=== PATIENT | female | born 1935 | race Caucasian/White ===

== ENCOUNTER 2017-06-26 18:38 | Inpatient (IN) | payer MEDICARE, OTHER ==
[~2017-06-26 18:38] MED LIST: ISOVUE-370 76%-LOCM 1 ML ONE
[2017-06-26] MEDS ORDERED: Ibuprofen 200 MG TAB ONE (18:51)
[2017-06-26 19:28] LABS: Hemoglobin 12.6 g/dL (12.0-16.0); Mean Corpuscular HGB CONC 33.8 g/dL (32.0-36.0); Mean Corpuscular Hemoglobin 31.1 pg (27.0-31.0); Mean Corpuscular Volume 92.1 fl (81.0-99.0); Mean Platelet Volume 7.8 fL (7.4-10.4); Platelet Count 293 thou/uL (130-400); RBC Distribution Width 12.5 % (11.5-14.5); Red Blood Cell (RBC) Count 4.06 mill/uL (4.20-5.40); White Blood Cell (WBC) Count 15.8 thou/uL (4.8-10.8)
[2017-06-26 19:44] LABS: Band 4 % (5-11); Lymphocytes 2 % (21-51); MDiff Complete? YES; Monocytes 16 % (0-10); Neutrophil 76 % (42-75); Reactive Lymphocytes 2 % (0-10)
[2017-06-26 19:51] LABS: ALT (SGPT) 12 U/L (8-55); AST (SGOT) 18 U/L (5-34); Albumin 3.6 g/dL (3.4-4.8); Alkaline Phosphatase 68 U/L (40-150); Anion Gap 16 mmol/L (10-20); BUN (Urea Nitrogen) 16 mg/dL (9.8-20.1); Bilirubin, Total 1.3 mg/dL (0.2-1.2); Calc. Creatinine Clearance 0 mL/min (70-130); Calcium 9.8 mg/dL (7.8-10.44); Carbon Dioxide 23 mmol/L (23-31); Chloride 94 mmol/L (98-107); Estimated GFR-MDRD 73; Globulin 3.6 g/dL (2.4-3.5); Glucose 112 mg/dL (83-110); Potassium 3.8 mmol/L (3.5-5.1); Protein, Total 7.2 g/dL (6.0-8.3); Sodium 129 mmol/L (136-145)
[2017-06-26 20:06] LABS: CKMB 0.4 ng/mL (0-6.6); Troponin I 0.034 ng/mL (< 0.028)
--- NOTE | 2017-06-26 20:57 | RAD ---
CHEST ONE VIEW: 06/26/17 COMPARISON: 04/12/10 study. HISTORY: Fever. Generalized weakness. Heart size is within normal limits considering AP technique. There are atherosclerotic changes of the aorta. The lungs are clear of infiltrates. Marked deformity to both shoulders are present. IMPRESSION: Borderline heart size. No active intrathoracic disease. POS: [facility]
[2017-06-26 21:22] LABS: Bilirubin Small (Negative); Blood, Urine Negative (Negative); Clarity CLEAR (Clear); Glucose, Urine (Dipstick) Negative (Negative); Leukocyte Moderate (Negative); Nitrite Negative (Negative); Protein, Urine (Dipstick) 30 mg/dL (Neg-Trace); Specific Gravity, Urine 1.018 (1.002-1.036); pH, Urine 6.5 (5.0-9.0)
[2017-06-26 21:23] LABS: Bacteria/HPF None Seen HPF (None Seen); Pathc Cast-AUWi Flag 1.21 (0-2.49); Squamous Epithelial 0-3 HPF (0-3)
[2017-06-26] MEDS ORDERED: diphenhydrAMINE 50 MG/ML VIAL ONE (21:29)
[2017-06-26] MEDS ORDERED: Famotidine/PF 20 mg/2ml Vial ONE (21:29)
[2017-06-26] MEDS ORDERED: methylPREDNISolone Sod Succ/PF 125 MG/2 ML VIAL ONE (21:29)
[2017-06-26 21:36] LABS: Hyaline Casts/LPF NONE SEEN LPF (0-3 Hyaline); RBC/HPF 0-3 HPF (0-3); Renal Epithelial None Seen HPF (0-3); Transitional Epithelial NONE SEEN HPF (0-3)
--- NOTE | 2017-06-26 22:49 | CT ---
CT ANGIO OF CHEST AND ABDOMEN PERFORMED WITH INTRAVENOUS CONTRAST ENHANCEMENT WITH 3D RECONSTRUCTIONS . HISTORY: Atrial fibrillation, hypertension. Patient complaining of pain on left side, also with chest and arm pain. History of lymphoma. Fever. Lung bases shows bibasilar atelectatic lung change. No pulmonary nodules or any pleural effusions. No significant mediastinal, hilar or axillary adenopathy. There are pulmonary artery opacifications. Shows no evidence of central pulmonary embolus. Thoracic aorta is normal in caliber. CT ANGIO OF ABDOMEN PERFORMED WITH CONTRAST: The liver, spleen, and pancreas regions appear unremarkable on an angiographic phase exam. There is a possible gallstone within the fundus region of the gallbladder. Right and left adrenal glands are normal. There is cortical scarring involving the kidneys and a righ t renal cyst. The aorta is normal in caliber. There is no dissection or aneurysm. Atherosclerotic disease is seen a t the origin of both renal arteries. No free fluid. IMPRESSION: 1. No CT evidence of aneurysm or dissection. 2. Bibasilar atelectasis. 3. Probable gallstone. 1. POS: [facility]
[2017-06-26 23:46] LABS: Troponin I 0.022 ng/mL (< 0.028)
[2017-06-27 01:19] VITALS: BMI 26.1
[2017-06-27 02:50] LABS: Troponin I 0.015 ng/mL (< 0.028)
[2017-06-27] MEDS ORDERED: cefTRIAXone\\ROCEPHIN 1 GM, Syringe 0.4 ML in Sterile Water 9.6 ML SLOW IVP SCH (10:00)
[2017-06-27] MEDS ORDERED: Acetaminophen 325 MG TAB PO PRN (10:54)
[2017-06-27] MEDS ORDERED: Senokot 8.6 MG TAB PO PRN (10:54)
[2017-06-27] MEDS ORDERED: traMADol HCl 50 MG TAB PO PRN (10:54)
[2017-06-27] MEDS ORDERED: Guaifenesin DM 100-10/5 ML UDCUP PO PRN (10:54)
[2017-06-27] MEDS ORDERED: cefTRIAXone\\ROCEPHIN 1 GM in Sodium Chloride 0.9% 100 ML IVPB SCH (11:00)
[2017-06-27] MEDS: Sodium Chloride 0.9% 1,000 ML IV SCH (12:20)
[2017-06-27 12:36] LABS: INR-International Normal Ratio 2.5
--- NOTE | 2017-06-27 14:23 | HP ---
REASON FOR ADMISSION: SIRS, UTI, demand ischemia. HISTORY OF PRESENT ILLNESS: The patient gives history of not feeling well from Friday. On Friday, she had left-sided chest pain which lasted for a few hours. She thought it is due to her sleeping in a bad position. She has had nonspecific aches and pains in her lower extremities. Does not complain of any increased frequency or burning urination. She has felt feverish, but has not measured any temperature. No cough or expectoration. On arrival, she had temperature of 103 here. PAST MEDICAL AND SURGICAL HISTORY: History of hypertension, chronic atrial fibrillation, hypothyroidism, dyslipidemia, bilateral knee replacements, severe mitral regurgitation, cataract surgery, colonoscopies. CURRENT MEDICATIONS: The patient is on levothyroxine 100 mcg p.o. daily, benazepril 40 mg p.o. daily, atenolol 50 mg p.o. daily, Coumadin 3 mg on all days except Friday when she takes 4.5 mg, Norvasc 10 mg p.o. daily, lovastatin 40 mg p.o. daily, Ultram p.r.n. for pain, multivitamin 1 tab once daily. The patient goes to [facility] in [place]. PERSONAL HISTORY: Does not abuse alcohol or drugs. No history of smoking. FAMILY HISTORY: There is no premature heart disease in the family. CODE STATUS: FULL. Power of immigration attorney is her daughter, Ms. Willoughby. REVIEW OF SYSTEMS: The following complete review of systems was negative, unless otherwise mentioned in the HPI or below: Constitutional: Weight loss or gain, ability to conduct usual activities. Skin: Rash, itching. Eyes: Double vision, pain. ENT/Mouth: Nose bleeding, neck stiffness, pain, tenderness. Cardiovascular: Palpitations, dyspnea on exertion, orthopnea. Respiratory: Shortness of breath, wheezing, cough, hemoptysis, fever or night sweats. Gastrointestinal: Poor appetite, abdominal pain, heartburn, nausea, vomiting, constipation, or diarrhea. Genitourinary: Urgency, frequency, dysuria, nocturia. Musculoskeletal: Pain, swelling. Neurologic/Psychiatric: Anxiety, depression. Allergy/Immunologic: Skin rash, bleeding tendency. PHYSICAL EXAMINATION: GENERAL: Patient is an 81-year-old female who is currently not in any acute distress. VITAL SIGNS: Blood pressure 116/74, pulse 94 per minute, respiratory rate 18 per minute, temperature on arrival was 103 degrees Fahrenheit, saturating 94% on room air. NECK: Supple, no elevated JVD. EYES: Extraocular muscles intact. Pupils reacting to light. ORAL CAVITY: Mucous membranes are dry. No exudates or congestion. CARDIOVASCULAR SYSTEM: S1, S2 heard. Regular rhythm. RESPIRATORY SYSTEM: Air entry 1+ bilaterally. No rales or rhonchi. ABDOMEN: Soft, bowel sounds heard. No tenderness, rigidity or guarding. EXTREMITIES: No peripheral edema or calf tenderness. VASCULAR SYSTEM: Peripheral pulses 1+ bilateral, no ischemic ulcerations or gangrene. CENTRAL NERVOUS SYSTEM: No gross focal deficits noted. Patient is alert, awake , oriented well. PSYCHIATRIC SYSTEM: The patient's mood is euthymic. No hallucinations or delusions. IMAGING DATA AND LABORATORY DATA: A CT dissection protocol done shows no evidence of aneurysm or dissection, probable gallstones. Influenza A and B nasal swab is negative for antigens. UA is positive for UTI. Initial troponin was 0.03. Subsequent two sets have been negative. Albumin 3.6. BUN is 16, creatinine 0.7, total bilirubin 1.3. AST, ALT, and alkaline phosphatase within normal limits. CK-MB 0.4. Sodium is 129, serum bicarbonate is 23. White count of 15, hemoglobin and hematocrit 12 and 37, platelet count is 293 with 76 % neutrophils and 4% bands. There are also 16% monocytes, MCV is 92. EKG done shows chronic atrial fibrillation at 94 beats per minute. There is questionable T inversion seen in lead II, III, AVF. CLINICAL IMPRESSION AND PLAN: The patient will be admitted to telemetry for urinary tract infection, SIRS with fever of 103 and white count of 15. On the CT dissection protocol, there is cortical scarring of the kidneys and right renal cyst. No obvious mention of stones on the CT dissection protocol. She will be on ciprofloxacin and ceftriaxone until urine cultures come back. We will also place her on normal saline at 75 mL per hour. We will continue her home dose of Norvasc, atenolol 50 mg daily, Singulair, Mevacor, Synthroid, and Coumadin as before. She has had one indeterminate cardiac troponin, likely due to demand ischemia from urinary tract infection and fever of 103. Her nonspecific complaints with muscle aches are mostly due to fever. We will also obtain a viral PCR in view of rampant influenza in the area. I have discussed code status with her and she would like to be a FULL CODE for now. She does not want to be in a vegetative state on the ventilator. Her daughter will be the power of immigration attorney for her and we will continue to closely monitor her on telemetry. Please note her atrial fibrillation is rate controlled for now. [facility]
[2017-06-27] MEDS: Warfarin Sodium 3 MG TAB PO SCH (17:01)
[2017-06-27] MEDS: Montelukast Sodium 10 mg Tablet PO SCH (21:44)
[2017-06-27] MEDS: Famotidine 20 MG TAB PO SCH (21:44)
[2017-06-27] MEDS: cefTRIAXone\\ROCEPHIN 1 GM, Syringe 0.4 ML in Sterile Water 9.6 ML SLOW IVP SCH (21:44)
[2017-06-27] MEDS: Lovastatin 20 MG TAB PO SCH (22:03)
[2017-06-28] MEDS: Sodium Chloride 0.9% 1,000 ML IV SCH ×2 (02:05→14:56)
[2017-06-28 06:15] LABS: #Lymphocytes 0.7 thou/uL (1.20-3.40); #Monocytes 0.7 thou/uL (0.11-0.59); #Neutrophils 11.8 thou/uL (1.40-6.50); %Basophils 0.4 % (0.0-1.0); %Eosinophils 0.1 % (0.0-10.0); %Lymphocytes 5.1 % (21.0-51.0); %Neutrophils 89.4 % (42.0-75.0); Hemoglobin 11.4 g/dL (12.0-16.0); Mean Corpuscular HGB CONC 33.3 g/dL (32.0-36.0); Mean Corpuscular Hemoglobin 30.6 pg (27.0-31.0); Mean Corpuscular Volume 91.9 fl (81.0-99.0); Mean Platelet Volume 8.2 fL (7.4-10.4); Platelet Count 261 thou/uL (130-400); RBC Distribution Width 12.2 % (11.5-14.5); Red Blood Cell (RBC) Count 3.73 mill/uL (4.20-5.40); White Blood Cell (WBC) Count 13.2 thou/uL (4.8-10.8)
[2017-06-28 06:24] LABS: Anion Gap 12 mmol/L (10-20); BUN (Urea Nitrogen) 15 mg/dL (9.8-20.1); Calc. Creatinine Clearance 79 mL/min (70-130); Calcium 9.6 mg/dL (7.8-10.44); Carbon Dioxide 27 mmol/L (23-31); Chloride 99 mmol/L (98-107); Estimated GFR-MDRD Greater than 90; Glucose 135 mg/dL (83-110); Potassium 3.4 mmol/L (3.5-5.1); Sodium 135 mmol/L (136-145)
[2017-06-28] MEDS: Levothyroxine Sodium 50 MCG TAB PO SCH (06:34)
[2017-06-28] MEDS: Atenolol 50 MG TAB PO SCH (08:22)
[2017-06-28] MEDS: Famotidine 20 MG TAB PO SCH ×2 (08:22→20:50)
[2017-06-28] MEDS: Amlodipine 10 MG TAB PO SCH (08:22)
--- NOTE | 2017-06-28 11:21 | PDOC.PN ---
- Subjective Encounter Start Date: 06/28/17 Encounter Start Time: 08:00 Subjective: no sob or palp -: couldn't sleep well last night - Objective Resuscitation Status: Resuscitation Status FULL:Full Resuscitation MAR Reviewed: Yes Vital Signs & Weight: Vital Signs (12 hours) Temp Pulse Resp BP BP Pulse Ox 06/28/17 08:22 101 H 131/74 06/28/17 08:00 98.1 F 101 H 18 95 06/28/17 07:40 98.1 F 101 H 18 131/74 95 06/28/17 04:10 107 H 18 122/72 93 L Weight Admit Weight 147 lb 5 oz Weight 149 lb 8 oz I&O: 06/27/17 06/28/17 06/29/17 06:59 06:59 06:59 Intake Total 100 1317 240 Output Total 100 Balance 0 1317 240 Result Diagrams: 06/28/17 05:15 06/28/17 05:15 Phys Exam - Physical Examination HEENT: PERRLA, moist MMs Neck: no JVD, supple Respiratory: no wheezing, no rales Cardiovascular: no significant murmur, irregular Gastrointestinal: soft, non-tender, positive bowel sounds Musculoskeletal: no edema, pulses present Neurological: non-focal, moves all 4 limbs Psychiatric: A&O x 3 Dx/Plan (1) UTI (urinary tract infection) Status: Acute Qualifiers: Urinary tract infection type: acute cystitis Hematuria presence: without hematuria Qualified Code(s): N30.00 - Acute cystitis without hematuria (2) SIRS (systemic inflammatory response syndrome) Code(s): R65.10 - SIRS OF NON-INFECTIOUS ORIGIN W/O ACUTE ORGAN DYSFUNCTION Status: Acute (3) Demand ischemia of myocardium Code(s): I24.8 - OTHER FORMS OF ACUTE ISCHEMIC HEART DISEASE Status: Resolved (4) Atrial fibrillation Code(s): I48.91 - UNSPECIFIED ATRIAL FIBRILLATION Status: Chronic Comment: on coumadin (5) HTN (hypertension) Code(s): I10 - ESSENTIAL (PRIMARY) HYPERTENSION Status: Chronic Qualifiers: Hypertension type: essential hypertension Qualified Code(s): I10 - Essential (primary) hypertension (6) Dyslipidemia Code(s): E78.5 - HYPERLIPIDEMIA, UNSPECIFIED Status: Chronic - Plan is on cipro and ceftriaxone -: prelim cultures are -ve -: tx to med floor -: wbc around 13, down from 15 -: inr is therapeutic, dc iv fluids if tolerating oral intake * . Review of Systems - Medications/Allergies Allergies/Adverse Reactions: Allergies Allergy/AdvReac Type Severity Reaction Status Date / Time aspirin Allergy Verified 06/27/17 01:42 iodine Allergy Rash Verified 06/27/17 01:42 Medications: Current Medications Acetaminophen (Tylenol) 650 mg PO Q4H PRN PRN Reason: Headache/Fever or Pain Amlodipine Besylate (Norvasc) 10 mg PO DAILY [facility] Last Admin: 06/28/17 08:22 Dose: 10 mg Atenolol (Tenormin) 50 mg PO DAILY [facility] Last Admin: 06/28/17 08:22 Dose: 50 mg Famotidine (Pepcid) 20 mg PO BID [facility] Last Admin: 06/28/17 08:22 Dose: 20 mg Guaifenesin/Dextromethorphan (Robitussin Dm) 15 ml PO Q4H PRN PRN Reason: Cough Ciprofloxacin/Dextrose 400 mg/ (Device) 200 mls @ 200 mls/hr IVPB Q12HR [facility] Last Admin: 06/28/17 09:06 Dose: 200 mls Sodium Chloride (Normal Saline 0.9%) 1,000 mls @ 75 mls/hr IV .[id number] [facility] Last Admin: 06/28/17 02:05 Dose: 1,000 mls Ceftriaxone Sodium 1 gm/ (Syringe 0.4 ml/ Sterile Water) 10 mls @ 120 mls/hr SLOW IVP 2200 [facility] Last Admin: 06/27/17 21:44 Dose: 10 mls Levothyroxine Sodium (Synthroid) 50 mcg PO 0600 [facility] Last Admin: 06/28/17 06:34 Dose: 50 mcg Lovastatin (Mevacor) 20 mg PO HS [facility] Last Admin: 06/27/17 22:03 Dose: 20 mg Montelukast Sodium (Singulair) 10 mg PO QPM [facility] Last Admin: 06/27/17 21:44 Dose: 10 mg Senna (Senokot) 2 tab PO HSPRN PRN PRN Reason: Constipation Sodium Chloride (Flush - Normal Saline) 10 ml IVF Q12HR [facility] Last Admin: 06/28/17 08:23 Dose: Not Given Sodium Chloride (Flush - Normal Saline) 10 ml IVF PRN PRN PRN Reason: Saline Flush Tramadol HCl (Ultram) 50 mg PO Q6H PRN PRN Reason: Pain Warfarin Sodium (Coumadin) 3 mg PO 1700 [facility] Last Admin: 06/27/17 17:01 Dose: 3 mg
[2017-06-28] MEDS: Warfarin Sodium 3 MG TAB PO SCH (17:14)
[2017-06-28] MEDS: Montelukast Sodium 10 mg Tablet PO SCH (20:50)
[2017-06-28] MEDS: Lovastatin 20 MG TAB PO SCH (20:50)
[2017-06-28] MEDS: cefTRIAXone\\ROCEPHIN 1 GM, Syringe 0.4 ML in Sterile Water 9.6 ML SLOW IVP SCH (23:02)
[2017-06-29] MEDS: Sodium Chloride 0.9% 1,000 ML IV SCH (04:05)
[2017-06-29] MEDS: Levothyroxine Sodium 50 MCG TAB PO SCH (06:15)
[2017-06-29 06:32] LABS: #Lymphocytes 1.8 thou/uL (1.20-3.40); #Monocytes 0.8 thou/uL (0.11-0.59); %Basophils 0.1 % (0.0-1.0); %Eosinophils 0.2 % (0.0-10.0); %Lymphocytes 18.8 % (21.0-51.0); %Monocytes 8.3 % (0.0-10.0); %Neutrophils 72.5 % (42.0-75.0); Hemoglobin 11.9 g/dL (12.0-16.0); Mean Corpuscular Hemoglobin 30.4 pg (27.0-31.0); Mean Corpuscular Volume 92.1 fl (81.0-99.0); Mean Platelet Volume 7.9 fL (7.4-10.4); Platelet Count 311 thou/uL (130-400); RBC Distribution Width 12.4 % (11.5-14.5); Red Blood Cell (RBC) Count 3.93 mill/uL (4.20-5.40); White Blood Cell (WBC) Count 9.7 thou/uL (4.8-10.8)
[2017-06-29 06:44] LABS: Anion Gap 14 mmol/L (10-20); BUN (Urea Nitrogen) 11 mg/dL (9.8-20.1); Calc. Creatinine Clearance 76 mL/min (70-130); Calcium 9.8 mg/dL (7.8-10.44); Carbon Dioxide 25 mmol/L (23-31); Chloride 102 mmol/L (98-107); Estimated GFR-MDRD Greater than 90; Glucose 95 mg/dL (83-110); Sodium 138 mmol/L (136-145)
[2017-06-29 06:48] LABS: INR-International Normal Ratio 2.8; Prothrombin Time 30.3 SEC (12.0-14.7)
[2017-06-29 06:58] LABS: Potassium 2.7 mmol/L (3.5-5.1)
[2017-06-29] MEDS: Atenolol 50 MG TAB PO SCH (07:43)
[2017-06-29] MEDS: Amlodipine 10 MG TAB PO SCH (07:44)
[2017-06-29] MEDS: Famotidine 20 MG TAB PO SCH (07:44)
[2017-06-29] MEDS: Potassium Chloride 20 MEQ TAB PO SCH ×2 (10:25→15:03)
[2017-06-29 11:44] VITALS: BP 120/95; TEMP 98.4
--- NOTE | 2017-06-29 15:45 | DIS ---
PRIMARY CARE PROVIDER: DMITRY Price DATE OF ADMISSION: 06/26/2017 DATE OF DISCHARGE: 06/29/2017 DISCHARGE DIAGNOSES: 1. Systemic inflammatory response syndrome. 2. Urinary tract infection, suspected. 3. Hypokalemia. CONDITION OF PATIENT ON THE DAY OF DISCHARGE: Stable. I assess Ms. Michaud on the day of discharge. She denies any chest pain or shortness of breath. Vital signs are stable. S1 and S2 are heard, regu lar. Lungs are clear to auscultation bilaterally. DISCHARGE MEDICATIONS: She is getting a prescription for cefdinir 300 mg 2 times a day. Otherwise, she is advised to continue all her home medications as dictated on history and physical note from . HOSPITAL COURSE: Ms. Michaud is a pleasant 81-year-old lady, who was admitted to [facility] on 06/26/2017 for SIRS and suspected urinary tract infection. She was treated with intr avenous antibiotics and subsequently stepped down to oral antibiotics. At the time of discharge, fin al urine culture is negative. Blood cultures are pending, which preliminary cultures being negative. Respiratory virus panel PCRs is negative. She is advised to follow up with her primary care provid er in 3-5 days to have her INR and electrolytes checked as well as to have final blood cultures were reviewed. During this hospitalization, she had a CT dissection protocol, which did not reveal any CT evidence o f aneurysm or dissection. She had a probable gallstone. She also had a 2D echocardiogram, which lacie wed normal left ventricular size and left ventricular ejection fraction of 55% to 60%. She had moder ate tricuspid regurgitation and moderately elevated pulmonary artery pressures. She also had severe mitral regurgitation. On the day of discharge, she has sodium 138, potassium 2.7, which is being replaced, normal creatinin e of 0.60, normal white count of 9700, decreased from 15,800 on 06/26/2017, hemoglobin 11.9, and plat elet count 311. Many thanks for allowing me to participate in your patient's care. Please feel free to contact me wi th any questions or concerns. DISCHARGE DESTINATION: Home. TOTAL AMOUNT OF TIME SPENT COORDINATING THIS DISCHARGE: 33 minutes.
[2017-06-29] MEDS ORDERED: Cefdinir 300 MG CAP PO SCH (21:00)
== END 2017-06-29 15:51 | disposition home or self-care (01) | DRG 690 ==
LOC: ERS 18:38 → 2NO 23:41 → ONC 06-28 14:02
PROVIDERS: ADMIT Family Medicine; ATTEND Family Medicine
DX: N30.00 Acute cystitis without hematuria (principal); I24.8 Other forms of acute ischemic heart disease; I48.2 Chronic atrial fibrillation; I08.1 Rheumatic disorders of both mitral and tricuspid valves; N28.1 Cyst of kidney, acquired; E87.6 Hypokalemia; Z79.01 Long term (current) use of anticoagulants; I10 Essential (primary) hypertension; E78.5 Hyperlipidemia, unspecified
CPT/HCPCS: 36415; 71010; 71275; 80048; 80053; 81003; 81015; 82553; 84443; 84484; 85025; 85610; 87040; 87086; 87633; 93005; 93306; 96374; 96375; A4216; J0696; J0744; J1200; J2930; S0028

== ENCOUNTER 2018-03-01 16:23 | Observation (INO) | payer MEDICARE, OTHER ==
[2018-03-01] MEDS ORDERED: Acetaminophen 500 MG TAB ONE (17:01)
[2018-03-01 17:23] LABS: Bilirubin Small (Negative); Blood, Urine Trace (Negative); Clarity CLEAR (Clear); Glucose, Urine (Dipstick) Negative (Negative); Leukocyte Moderate (Negative); Nitrite Negative (Negative); Protein, Urine (Dipstick) Trace mg/dL (Neg-Trace); Specific Gravity, Urine 1.022 (1.002-1.036)
[2018-03-01 17:26] LABS: Bacteria/HPF None Seen HPF (None Seen); Pathc Cast-AUWi Flag 2.03 (0-2.49); Squamous Epithelial 0-3 HPF (0-3)
[2018-03-01 17:27] LABS: Hyaline Casts/LPF 0-3 HYALINE CAST LPF (0-3 Hyaline); Renal Epithelial None Seen HPF (0-3); Transitional Epithelial NONE SEEN HPF (0-3)
[2018-03-01 17:45] LABS: Mean Corpuscular HGB CONC 34.8 g/dL (32.0-36.0); Mean Corpuscular Hemoglobin 30.9 pg (27.0-31.0); Mean Corpuscular Volume 88.8 fL (78.0-98.0); Mean Platelet Volume 7.7 fL (7.4-10.4); Platelet Count 236 thou/uL (130-400); RBC Distribution Width 11.9 % (11.5-14.5); Red Blood Cell (RBC) Count 4.22 mill/uL (4.20-5.40); White Blood Cell (WBC) Count 7.8 thou/uL (4.8-10.8)
[2018-03-01 17:51] LABS: INR-International Normal Ratio 1.9; PTT 48.1 SEC (22.9-36.1); Prothrombin Time 21.9 SEC (12.0-14.7)
[2018-03-01 18:07] LABS: ALT (SGPT) 21 U/L (8-55); AST (SGOT) 33 U/L (5-34); Albumin 3.7 g/dL (3.4-4.8); Alkaline Phosphatase 81 U/L (40-150); Anion Gap 14 mmol/L (10-20); BUN (Urea Nitrogen) 14 mg/dL (9.8-20.1); Band 6 % (5-11); Bilirubin, Total 0.8 mg/dL (0.2-1.2); Calc. Creatinine Clearance 0 mL/min (70-130); Calcium 9.4 mg/dL (7.8-10.44); Carbon Dioxide 22 mmol/L (23-31); Chloride 98 mmol/L (98-107); Estimated GFR-MDRD 71; Globulin 3.6 g/dL (2.4-3.5); Glucose 148 mg/dL (83-110); Lymphocytes 3 % (21-51); MDiff Complete? YES; Monocytes 3 % (0-10); Neutrophil 87 % (42-75); PLT Morphology Comment Appears Adequate; Potassium 3.6 mmol/L (3.5-5.1); Protein, Total 7.3 g/dL (6.0-8.3); Sodium 130 mmol/L (136-145)
[2018-03-01] MEDS ORDERED: Ibuprofen 200 MG TAB ONE (18:21)
[2018-03-01] MEDS ORDERED: Cefepime 2 GM in Sodium Chloride 0.9% 100 ML IVPB SCH (18:30)
--- NOTE | 2018-03-01 19:05 | RAD ---
RADIOGRAPH CHEST 1 VIEW: HISTORY: 82-year-old female with fever. FINDINGS: There are no air space densities, pulmonary edema, pneumothorax, or cardiomegaly. The lateral costop hrenic angles are sharp. IMPRESSION: No acute cardiopulmonary findings. tracy POS: [facility]
--- NOTE | 2018-03-01 19:38 | RAD ---
RADIOGRAPH RIGHT SHOULDER THREE VIEWS: Date: 03-01-18 Time: 5:40 p.m. History: 82-year-old female with right shoulder pain. FINDINGS: The majority of the volume of the humeral head is absent, and there are sclerotic irregular margins. There are severe degenerative changes at the glenohumeral joint with sclerosis and bony hypertrophy o f the gleniod. These chronic changes were present in prior chest radiographs. There are mild degener ative changes at the AC joint. There is osteopenia. No fracture or dislocation. No acute fracture. Th ere is a questionable large osteolytic defect involving the medial proximal aspect of the proximal hu meral metadiaphysis. IMPRESSION: 1. Severe chronic changes of the glenohumeral joint, including severe osteoarthrosis, chronic loss of volume of the majority of the humeral head, and subluxation of a widened glenohumeral joint space. T here is probably a large joint effusion associated with this. 2. Questionable osteolytic lesion in the proximal humeral metadiaphysis versus artifact as part of th e osteopenia. POS: [facility]
--- NOTE | 2018-03-01 20:04 | PDOC.FPRHP ---
- History of Present Illness Chief Complaint: dark urine, right shoudler pain History of Present Illness: 82 yo F with PMH of OA presented to ED with chief complaint of dark urine and right shoulder pain. Starting Friday pt. noted her urine was dark brown and had no other sxs-denied dysuria, frequency, urgency, flank pain. Has a PMH of recurrent UTIs that presented exactly like her episode today. Her last one required hospitalization 6 months ago and was tx with abx. She hasn't received outpt workup regarding this. She reports she has been hydrating adequately, drinking 8, 8oz glasses of water a day. In regards to her right shoulder pain it started , and the next day the skin redness appeared. She experiences pain with movement. She has a PMH of OA in her shoulders b/l which limit her ROM. She does not typically experience joint pain due to OA. Of note, two years ago Dr. Carvalho had tapped her R shoulder for presumed infection in outpt. setting, per patient. Currently, she lives with daughter who measured home temps of 100, 101. Onset of all these symptoms warranted visit to the ED. Patient denied feeling feverish, having chills, nausea, vomiting, malaise, appetite loss. She also has a hx of lymphoma s/p lymph node removal in which she follows with Dr. Coreas for q6mo. No chemo or radiation. ED Course: Had a fever of 102 and ws given Cefepime 2g x1, Vanc 1g x1, Tylenol ER, Ibuprofen - Allergies/Adverse Reactions Allergies Allergy/AdvReac Type Severity Reaction Status Date / Time aspirin Allergy Verified 06/27/17 01:42 iodine Allergy Rash Verified 06/27/17 01:42 - Home Medications Medication Instructions Recorded Confirmed Type Warfarin Sodium [Coumadin] 1 tab PO ASDIR 09/24/13 03/01/18 History Amlodipine [Norvasc] 10 mg PO DAILY 06/27/17 03/01/18 History Atenolol 25 mg PO HS 06/27/17 03/01/18 History Atenolol [Tenormin] 50 mg PO QAM 06/27/17 03/01/18 History Benazepril HCl 40 mg PO DAILY 06/27/17 03/01/18 History Levothyroxine Sodium [Synthroid] 100 mcg PO DAILY 06/27/17 03/01/18 History Lovastatin 40 mg PO HS 06/27/17 03/01/18 History traMADol HCl [Tramadol HCl] 50 mg PO Q6H PRN 06/27/17 03/01/18 History - History PMHx: Lympohoma, Afib, Hypothyroidism, HLD, HTN, OA PSHx: B/L knee replacement for OA, Inguinal/femoral lymph node removal FHx: LA, HTN, DM, OA Social: Denies tobacco, etoh, drugs - Review of Systems General: denies: fever/chills, weight/appetite/sleep changes, fatigue Eyes: denies: eye pain, vision changes ENT: denies: nasal congestion, rhinorrhea Respiratory: denies: cough, congestion, shortness of breath Cardiovascular: denies: chest pain, palpitation, edema Gastrointestinal: denies: nausea, vomiting, diarrhea, constipation, abdominal pain Genitourinary: denies: dysuria, polyuria Skin: reports: rashes. denies: lesions Musculoskeletal: reports: stiffness, swelling. denies: pain Neurological: denies: numbness, syncope, weakness - Vital signs BP: 127/73 HR: 75 RR: 34 Tmax: 98.1 Pox: [100]% on [RA] Wt: [67] - Physical Exam Constitutional: NAD, awake, alert and oriented, well developed HEENT: normocephalic and atraumatic, PERRLA, EOMI, conjunctiva clear, no scleral icterus, grossly normal vision, normal nasal mucosa Neck: supple, FROM Chest: no-tender to palpation, no lesions Heart: pulses present, no edema -Heart: regular rate, irregular rhythm Lungs: CTAB, no respiratory distress, good air movement Abdomen: soft, non-tender, bowel sounds present, no masses/distention Musculoskeletal: normal structure, normal tone Neurological: no focal deficit Skin: no rash/lesions, good turgor, capillary refill <2 seconds -Skin: R shoulder: erythematous, warm and mildly tender to touch. Circular in shape roughly [id number], No sharp demarcation or raised lesion. Fluid fluctane. Heme/Lymphatic: no unusual bruising or bleeding, no purpura Psychiatric: normal mood and affect, good judgment and insight FMR H&P: Results - Labs Result Diagrams: 03/01/18 17:29 03/01/18 17:29 Lab results: WBC 7.8 thou/uL (4.8-10.8) 03/01/18 17:29 Hgb 13.0 g/dL (12.0-16.0) 03/01/18 17:29 Hct 37.5 % (36.0-47.0) 03/01/18 17:29 MCV 88.8 fL (78.0-98.0) 03/01/18 17:29 Plt Count 236 thou/uL (130-400) 03/01/18 17:29 Band Neuts % (Manual) 6 % (5-11) 03/01/18 17:29 Sodium 130 mmol/L (136-145) L 03/01/18 17:29 Potassium 3.6 mmol/L (3.5-5.1) 03/01/18 17:29 Chloride 98 mmol/L (98-107) 03/01/18 17:29 Carbon Dioxide 22 mmol/L (23-31) L 03/01/18 17:29 BUN 14 mg/dL (9.8-20.1) 03/01/18 17:29 Creatinine 0.77 mg/dL (0.6-1.1) 03/01/18 17:29 Glucose 148 mg/dL (83-110) H 03/01/18 17:29 Lactic Acid 1.7 mmol/L (0.5-2.2) 03/01/18 17:30 Calcium 9.4 mg/dL (7.8-10.44) 03/01/18 17:29 Total Bilirubin 0.8 mg/dL (0.2-1.2) 03/01/18 17:29 AST 33 U/L (5-34) 03/01/18 17:29 ALT 21 U/L (8-55) 03/01/18 17:29 Alkaline Phosphatase 81 U/L (40-150) 03/01/18 17:29 Serum Total Protein 7.3 g/dL (6.0-8.3) 03/01/18 17:29 Albumin 3.7 g/dL (3.4-4.8) 03/01/18 17:29 Urine Ketones Trace mg/dL (Negative) H 03/01/18 17:00 Urine Blood Trace (Negative) H 03/01/18 17:00 Urine Nitrite Negative (Negative) 03/01/18 17:00 Ur Leukocyte Esterase Moderate (Negative) H 03/01/18 17:00 Urine RBC 7-10 HPF (0-3) H 03/01/18 17:00 Urine WBC 7-10 HPF (0-3) H 03/01/18 17:00 Ur Squamous Epith Cells 0-3 HPF (0-3) 03/01/18 17:00 Urine Bacteria None Seen HPF (None Seen) 03/01/18 17:00 - EKG Interpretation EKG: Afib - Radiology Interpretation Chest x-ray Status: image reviewed by me, report reviewed by me Other Status: image reviewed by me, report reviewed by me FMR H&P: A/P - Problem List (1) Cellulitis Current Visit: Yes Status: Acute Code(s): L03.90 - CELLULITIS, UNSPECIFIED (2) Possible urinary tract infection Current Visit: Yes Status: Acute Code(s): R39.89 - OTHER SYMPTOMS AND SIGNS INVOLVING THE GENITOURINARY SYSTEM (3) Subtherapeutic international normalized ratio (INR) Current Visit: Yes Status: Acute Code(s): R79.1 - ABNORMAL COAGULATION PROFILE (4) Atrial fibrillation Current Visit: No Status: Chronic Code(s): I48.91 - UNSPECIFIED ATRIAL FIBRILLATION Comment: on coumadin (5) Dyslipidemia Current Visit: No Status: Chronic Code(s): E78.5 - HYPERLIPIDEMIA, UNSPECIFIED (6) HTN (hypertension) Current Visit: No Status: Chronic Code(s): I10 - ESSENTIAL (PRIMARY) HYPERTENSION Qualifiers: Hypertension type: essential hypertension Qualified Code(s): I10 - Essential (primary) hypertension (7) Chronic hyponatremia Current Visit: Yes Status: Acute Code(s): E87.1 - HYPO-OSMOLALITY AND HYPONATREMIA (8) Hypothyroidism Current Visit: Yes Status: Acute Code(s): E03.9 - HYPOTHYROIDISM, UNSPECIFIED (9) Osteoarthritis Current Visit: Yes Status: Acute Code(s): M19.90 - UNSPECIFIED OSTEOARTHRITIS, UNSPECIFIED SITE - Plan 82 yo F with R shoulder cellulitis Right shoulder joint effusion with possible cellulitis -no recent trauma or surgery, received steroid injection for [place] [address] Carvalho -h/o of needing joint aspiration for similar -less likely erysipelas due to absence of demarcation -no signs of sepsis - no systemic sxs aside from presenting fever of 102, now down to 98 after tylenol -labs show neutrophilia with no bandemia, likely due to stress rxn or beginning of infectious response; will order CRP, ESR -less concern for abscess Shoulder XR showed degenerative changes but made comment on presence of joint effusion. Concern for joint involvement will order R shoulder U/S to assess for jt. effusion. Anticipate aspiration based on history and PE. -Blood Cx ordered -acetaminophen and motrin for fever and pain -Per Vanc protocol pt. should receive 1g q24hr. Based on creatinine clearance of 54 pt should receive 2g IV cefpime q24. Pt. is s/p vanc x1 & cefepime x1 in ED and is covered until tomorrow evening. Will not start antibiotics at this point. Pending if erythema decreases and pt remains clinically stable, can consider discontinuation of abx Possible UTI -UA showed mod LE and blood; pt. is asx -Prior hx of recurrent UTIs all presenting similar to this admission -s/p cefepime x1 in ED -Sent Urine Cx -Due to recurrent UTIs, consider underlying pathology and outpatient workup Chronic Afib controlled with Coumadin -Followed by Dr. Portillo for management -Rate controlled in 70s, continue atenolol -On coumadin, last INR drawn last Friday, was found to be subtherapeutic so inc. coumadin dose (takes 3mg daily, 3.5 tuesdays) -Will monitor on tele Subtherapeutic INR -INR 1.9 in ED -Will continue to trend with daily PT/PTT/INR panel -Consider adjusting coumadin dose -Last joint tap in 2015 was done outpt. and coumadin was not held. Do not anticipate joint aspiration needed during this admission so will not hold daily coumadin Chronic Hyponatremia -130 on admission, pt. denies seizures, a&o x4 -prior admissions show Na in similar range -Will monitor and observe with daily BMP HTN -stable, will resume home amlodipine, benazepril, atenolol HLD -stable, will resume home meds Hypothyroidism -stable, will resume home meds Code: Full Diet: HH DVT ppx: coumadin Discussed with Dr. Rodriguez FMR H&P: Upper Level - Pertinent history 82 yo CF with a PMH of lymphoma, chronic atrial fibrillation on Warfarin, and severe right shoulder OA p/w fever. Pt and daughter note that starting yesterday , they first noticed redness to the back of her right shoulder. The area was warm to touch and slightly more swollen than usual. They state she has a history of joint effusions that have required drainage by orthopedist Dr. Carvalho , most recently about 2 years ago. Daughter notes that the area spread quickly and has continued to grow since yesterday. She attempted to see PCP in [place] but was closed for weekend, so ultimately presented to ER today. Pt also endorses dark colored, malodorous urine over the same time frame. Pt otherwise denies chills, decreased PO intake, LOPEZ, CP, palpitations, abdominal pain, NVD, dysuria, rash, other joint swelling, sick contacts, or recent travel. In ER, pt was given Ibuprofen 600 mg, Tylenol 1 g, Vancomycin 1 g, and Cefepime 2 g. - Pertinent findings Vitals: BP 124/72, HR 75, R 16, O2 98% on RA, Tmax 102.0, wt 63.5kg Gen: well nourished in NAD CV: irregularly irregular rhythm, normal rate Resp: nonlabored, CTAB Abd: BS+, soft, no TTP, mild bladder distention to palpation MSK: R shoulder joint effusion, limited ROM at baseline per pt Skin: R shoulder overlying warmth & erythema, not raised, no clear demarcations - Plan Date/Time: 03/01/182002 I, Fidel Berg MD PGY3, have evaluated this patient and agree with findings/ plan as outlined by product marketing intern resident. Pertinent changes/additions are listed here. 1. Right shoulder effusion with possible overlying cellulitis -Pt has a hx of immunosuppression 2/2 lymphoma and recurrent joint effusions of right shoulder. Pt febrile on presentation but otherwise does not meet SIRS/ sepsis criteria and has not received outpatient treatment. Shoulder XR reveals likely joint effusion with physical exam consistent. -Obtain ESR, CRP, and formal shoulder ultrasound to evaluate joint effusion. Pt chronically anticoagulated with Warfarin, consider risk/benefit of joint aspiration if fluid present on US. -With relatively quick spread per history, fever, and poor demarcation/flat appearance, concern for Staph spp over erysipelas. No drainage and no history of MRSA, low level of concern. Blood and urine cultures obtained. Mild left shift on CBC but no leukocytosis. Continue broad spectrum abx and likely deescalate therapy quickly. -Pt tolerating PO intake at this time, no indiction for IVF. -Tylenol and motrin for pain control. 2. Possible UTI -Pt symptomatic with dark colored, foul smelling urine, similar to previous presentations for UTI. -Urine culture obtained. Continue abx but likely colonization vs acute infection. UA only shows Mod LUE. 3. Mild hyponatremia, likely hypovolemic -Chronic issue based on review of previous hospitalizations. -Corrected at 131. -Asymptomatic and near baseline, continue to trend. 4. Chronic atrial fibrillation on Warfarin -Afib on EKG but rate controlled at 71, asymptomatic. -Continue to monitor on telemetry. -Pt follows with Dr. Portillo outpatient. 5. Subtherapeutic INR -Recently had Warfarin dose increased. -Continue to monitor and consider risk/benefit if pt requires joint aspiration. 6. Hx of lymphoma -Pt has never required treatment and follows up with Dr. Coreas every 6 months in the outpatient setting. Continue home medications for other chronic medical conditions. PPx: Warfarin for VTE, no GI indicated. CODE status: FULL disposition: Admit to observation status for anticipated length of stay less than two midnights, pending clinical course. Attending Addendum - Attending Addendum Date/Time: 03/02/18 0000 I personally evaluated the patient and discussed the management with Dr. Jimenez. I agree with the History, Examination, Assessment and Plan documented above with any addition or exceptions noted below. O my exam, a right shoulder effusion is noted. Her ROM is limited to below the shoulderline, which is her baseline for both arms. Thre is a pen marking for eryhtma but I see only minimal erythema without induration. Palpation fot eh shoudler joint adn effusion is nontender. I suspect a traumatic effusion from overuse this past week, but she is at risk for infection so it must be entertained in the diff dx. A diagnostic tap may be pursued tomorrow or consultation with ortho as deemed appropriate by the day team. Katy is feeling better since admission and is in good spirits.
[2018-03-01 21:35] VITALS: BMI 26.3
[2018-03-01] MEDS ORDERED: Ondansetron ODT 4 MG TAB PO PRN (21:53)
[2018-03-01] MEDS ORDERED: Acetaminophen 325 MG TAB PO PRN (21:53)
[2018-03-01] MEDS ORDERED: Atenolol 25 MG TAB PO SCH ×2 (22:58→23:15)
[2018-03-01] MEDS: Warfarin Sodium 3 MG TAB PO SCH (23:05)
[2018-03-02 04:23] LABS: INR-International Normal Ratio 2.1; Prothrombin Time 23.4 SEC (12.0-14.7)
[2018-03-02 04:31] LABS: Anion Gap 13 mmol/L (10-20); BUN (Urea Nitrogen) 11 mg/dL (9.8-20.1); Calc. Creatinine Clearance 71 mL/min (70-130); Calcium 9.3 mg/dL (7.8-10.44); Carbon Dioxide 22 mmol/L (23-31); Chloride 103 mmol/L (98-107); Estimated GFR-MDRD 90; Glucose 109 mg/dL (83-110); Potassium 3.2 mmol/L (3.5-5.1); Sodium 135 mmol/L (136-145)
[2018-03-02 04:32] LABS: #Eosinphils 0.1 thou/uL (0.0-0.7); #Monocytes 0.8 thou/uL (0.11-0.59); #Neutrophils 3.4 thou/uL (1.40-6.50); %Basophils 0.6 % (0.0-1.0); %Eosinophils 1.9 % (0.0-10.0); %Lymphocytes 31.4 % (21.0-51.0); %Monocytes 12.5 % (0.0-10.0); %Neutrophils 53.7 % (42.0-75.0); Hemoglobin 12.1 g/dL (12.0-16.0); Mean Corpuscular Hemoglobin 30.8 pg (27.0-31.0); Mean Corpuscular Volume 88.1 fL (78.0-98.0); Mean Platelet Volume 7.5 fL (7.4-10.4); Platelet Count 211 thou/uL (130-400); RBC Distribution Width 11.8 % (11.5-14.5); Red Blood Cell (RBC) Count 3.93 mill/uL (4.20-5.40); White Blood Cell (WBC) Count 6.3 thou/uL (4.8-10.8)
[2018-03-02] MEDS: Levothyroxine Sodium 50 MCG TAB PO SCH (05:46)
[2018-03-02] MEDS: Atenolol 50 MG TAB PO SCH (08:06)
[2018-03-02] MEDS: Amlodipine 10 MG TAB PO SCH (08:07)
--- NOTE | 2018-03-02 08:38 | PDOC.FM ---
- Subjective Subjective: Patient doing well this AM. She states her pain is much improved from yesterday. She has not had any significant events overnight. She is no longer febrile. She states she has chronic pain in bilateral shoulders, but this recent pain started Friday. She has had it tapped in the past and cannot recall what diagnosis was at that time, but states she was treated outpatient with antibiotics. She denies n/v/d, fever, chills. - Objective MAR Reviewed: Yes Vital Signs & Weight: Vital Signs (12 hours) Temp Pulse Resp BP BP Pulse Ox 03/02/18 07:17 97.7 F 75 15 118/58 L 99 03/02/18 05:04 82 03/02/18 03:20 80 18 139/75 98 03/01/18 23:30 97.2 F L 82 21 H 129/60 99 03/01/18 21:25 97.5 F L 66 15 127/60 94 L Weight Weight 67.358 kg I&O: 03/01/18 03/02/18 03/03/18 06:59 06:59 06:59 Output Total 1000 700 Balance -1000 -700 Result Diagrams: 03/02/18 03:50 03/02/18 03:50 EKG Reviewed by me: Yes Radiology Reviewed by me: Yes <Purvi Brock - Last Filed: 03/02/18 12:15> - Objective Vital Signs & Weight: Vital Signs (12 hours) Temp Pulse Resp BP BP Pulse Ox 03/02/18 11:30 97.4 F L 60 18 120/59 L 96 03/02/18 08:05 97.7 F 75 15 03/02/18 07:17 97.7 F 75 15 118/58 L 99 03/02/18 05:04 82 03/02/18 03:20 80 18 139/75 98 Weight Weight 67.358 kg I&O: 03/01/18 03/02/18 03/03/18 06:59 06:59 06:59 Output Total 1000 1700 Balance -1000 -1700 Result Diagrams: 03/02/18 03:50 03/02/18 03:50 <Jose Raul Mendoza - Last Filed: 03/02/18 12:30> Phys Exam - Physical Examination Constitutional: NAD HEENT: moist MMs, sclera anicteric Neck: supple Respiratory: no wheezing, clear to auscultation bilateral Irregularly irregular rhythm Gastrointestinal: soft, non-tender, no distention, positive bowel sounds Musculoskeletal: no edema, pulses present Neurological: non-focal Psychiatric: normal affect, A&O x 3 Skin: cap refill <2 seconds Deviation from normal: Left shoulder appears larger than right, palpable effusion. -: No obvious erythema or warmth <Purvi Brock - Last Filed: 03/02/18 12:15> Dx/Plan (1) Shoulder joint effusion Code(s): M25.419 - EFFUSION, UNSPECIFIED SHOULDER Status: Acute (2) Possible urinary tract infection Code(s): R39.89 - OTHER SYMPTOMS AND SIGNS INVOLVING THE GENITOURINARY SYSTEM Status: Acute (3) Osteoarthritis Code(s): M19.90 - UNSPECIFIED OSTEOARTHRITIS, UNSPECIFIED SITE Status: Chronic (4) Subtherapeutic international normalized ratio (INR) Code(s): R79.1 - ABNORMAL COAGULATION PROFILE Status: Acute (5) Atrial fibrillation Code(s): I48.91 - UNSPECIFIED ATRIAL FIBRILLATION Status: Chronic - Plan Plan: 82 yo F with R shoulder cellulitis Right shoulder joint effusion -no recent trauma or surgery, received steroid injection for OA [place] [address] Carvalho along with arthrocentesis which assisted with pain -h/o of needing joint aspiration for similar presentation -no signs of sepsis - no systemic sxs aside from presenting fever of 102, afebrile overnight -CRP elevated at 19.54, ESR elevated at 66 -Shoulder XR showed degenerative changes, questionable osteolytic defect of proximal humeral metadiaphysis, and probable large joint effusion -u/s of right shoulder pending to further evaluate for effusion -Blood Cx pending -acetaminophen and motrin for fever and pain -Per Vanc protocol pt. should receive 1g q24hr. Based on creatinine clearance of 54 pt should receive 2g IV cefpime q24. Pt. is s/p vanc x1 & cefepime x1 in ED and is covered until this evening -Consider MRI of right shoulder to evaluate for osteomyelitis Possible UTI -UA showed mod LE and blood; pt. is asymptomatic aside from presenting with fever -Prior hx of recurrent UTIs all presenting similar to this admission -s/p cefepime x1 in ED -Urine cx pending -likely does not need further treatment unless fever attributed to UTI vs. infected shoulder -Pt asymptomatic Chronic Afib controlled with Coumadin -Followed by Dr. Portillo for management -Rate controlled in 70s, continue atenolol -On coumadin, last INR drawn last Friday, was found to be subtherapeutic so inc. coumadin dose (takes 3mg daily, 3.5 tuesdays). INR this AM was 2.1, which was up from 1.9 -Will monitor on tele Subtherapeutic INR -INR 1.9 in ED; 2.1 this AM -Will continue to trend with daily PT/PTT/INR panel -Last joint tap in 2016 was done outpt. and coumadin was not held. Chronic Hyponatremia -130 on admission, 135 this AM. -prior admissions show Na in similar range, appears chronic -Will monitor and observe with daily BMP HTN -stable, will resume home amlodipine, benazepril, atenolol HLD -stable, will resume home meds Hypothyroidism -stable, will resume home meds Code: Full Diet: HH DVT ppx: coumadin Dispo: Patient stable. Will further evaluate for effusion and consider joint aspiration vs. MRI. <Purvi Brock - Last Filed: 03/02/18 12:15> Attending Addendum - Attending Addendum Date/Time: 03/02/18 1226 I personally evaluated the patient and discussed the management with Dr. Brock. I agree with and repeated the History, Examination, Assessment and Plan documented above with any addition or exceptions noted below. Patient presented with primarily lower abdominal pain/dark urine on further review. Her RUE symptoms are chronic and mildly exacerbated from doing a lot of housework the last several days. Her symptoms have improved after antibiotics. On exam, shoulder NTTP, obviously deformed with palpable effusion. I am unable to appreciate any erythema of the shoulder. She is able to range the shoulder consistently with prior and denies any significant pain with P/AROM. No prominent CVAT. Irreg irreg, no murmurs. CTAB s w/r/r. NTTP abdomen. labs and imaging reviewed. Chronic findings on shoulder xray that was ordered. Pyelonephritis: mod leuks, await growth from UCx. She is markedly improved today she says from yesterday. Right shoulder pain: long standing. I agree with radiology and do no favor an infected joint, especially with her stable exam and lack of significant symptoms this AM. I would monitor this clinically. Anticipate one more night in the hospital, change to inpatient. <Jose Raul Mendoza - Last Filed: 03/02/18 12:30>
[2018-03-02] MEDS ORDERED: Prevnar 13-Val Conj/PF 0.5 ML SYRINGE IM ONE (09:00)
--- NOTE | 2018-03-02 11:46 | ULT ---
LOCALIZED ULTRASOUND OF THE RIGHT GLENOHUMERAL JOINT: HISTORY: Concern for right glenohumeral joint effusion and a history of right shoulder cellulitis. COMPARISON: Left shoulder radiographs dated 08/14/[address] dated 08/14/11. Comparisons are also mad e with a CT aortic dissection protocol dated 06/26/17. FINDINGS: As seen on the comparison examinations is prominent synovial proliferation as well as fluid distentio n of the glenohumeral joint. There are multiple small intraarticular bodies seen within the subcorac oid recess. One of the largest measures 1.1 cm. IMPRESSION: Persistent large right glenohumeral joint effusion. This has been present on multiple examinations d ating back to 2011. The patient has multiple areas of synovial proliferation seen within the visuali zed glenohumeral joint with scattered intraarticular bodies. Findings can be seen with inflammatory arthritis such as a rheumatoid arthritis. The synovial proliferation can induce an entity such as sy novial osteochondromatosis. Obviously, a septic arthritis could also produce these findings, but wit h the chronicity, it is felt to be less likely. POS: SKYE
[2018-03-02] MEDS ORDERED: cefTRIAXone\\ROCEPHIN 1 GM in Sodium Chloride 0.9% 100 ML IVPB SCH (12:30)
[2018-03-02] MEDS: Warfarin Sodium 3 MG TAB PO SCH (17:34)
[2018-03-02] MEDS ORDERED: Atorvastatin Calcium 10 MG TAB PO SCH (21:00)
[2018-03-02] MEDS ORDERED: Atenolol 25 MG TAB PO SCH (21:00)
[2018-03-03 02:48] VITALS: TEMP 97.1
[2018-03-03] MEDS: Levothyroxine Sodium 50 MCG TAB PO SCH (04:13)
[2018-03-03 04:29] LABS: #Eosinphils 0.1 thou/uL (0.0-0.7); #Lymphocytes 1.3 thou/uL (1.20-3.40); #Monocytes 0.5 thou/uL (0.11-0.59); #Neutrophils 3.1 thou/uL (1.40-6.50); %Basophils 0.5 % (0.0-1.0); %Eosinophils 2.1 % (0.0-10.0); %Lymphocytes 25.1 % (21.0-51.0); %Monocytes 10.6 % (0.0-10.0); %Neutrophils 61.7 % (42.0-75.0); Hemoglobin 11.9 g/dL (12.0-16.0); Mean Corpuscular HGB CONC 34.6 g/dL (32.0-36.0); Mean Corpuscular Hemoglobin 30.5 pg (27.0-31.0); Mean Corpuscular Volume 88.1 fL (78.0-98.0); Mean Platelet Volume 7.6 fL (7.4-10.4); Platelet Count 237 thou/uL (130-400); RBC Distribution Width 11.7 % (11.5-14.5); Red Blood Cell (RBC) Count 3.91 mill/uL (4.20-5.40); White Blood Cell (WBC) Count 5.1 thou/uL (4.8-10.8)
[2018-03-03 05:00] LABS: Anion Gap 15 mmol/L (10-20); BUN (Urea Nitrogen) 6 mg/dL (9.8-20.1); Calc. Creatinine Clearance 78 mL/min (70-130); Calcium 9.4 mg/dL (7.8-10.44); Carbon Dioxide 21 mmol/L (23-31); Chloride 102 mmol/L (98-107); Estimated GFR-MDRD Greater than 90; Glucose 110 mg/dL (83-110); Potassium 3.2 mmol/L (3.5-5.1); Sodium 135 mmol/L (136-145)
--- NOTE | 2018-03-03 08:03 | PDOC.FM ---
- Subjective Subjective: Patient doing well this AM. No significant overnight events. She has not had any fever or chills overnight. Urine has cleared. No abdominal pain, N/V/D. Patient does endorse limited ROM in right arm which is a little worse than yesterday. She denies any redness surrounding the joint. She has no pain when palpating the joint. - Objective MAR Reviewed: Yes Vital Signs & Weight: Vital Signs (12 hours) Temp Pulse Resp BP BP Pulse Ox 03/03/18 07:33 97.1 F L 82 20 03/03/18 02:32 97.1 F L 82 20 160/73 H 99 03/02/18 20:27 97.7 F 79 12 128/65 03/02/18 20:26 78 128/65 95 Weight Weight 67.358 kg I&O: 03/02/18 03/03/18 03/04/18 06:59 06:59 06:59 Intake Total 1500 Output Total 1000 1700 Balance -1000 -200 Result Diagrams: 03/03/18 03:37 03/03/18 03:37 EKG Reviewed by me: No Radiology Reviewed by me: Yes <Purvi Brock - Last Filed: 03/03/18 11:16> - Objective Vital Signs & Weight: Vital Signs (12 hours) Temp Pulse Resp BP Pulse Ox 03/03/18 07:33 97.1 F L 82 20 03/03/18 07:23 97.9 F 88 18 132/58 L 99 03/03/18 02:32 97.1 F L 82 20 160/73 H 99 Weight Weight 67.358 kg I&O: 03/02/18 03/03/18 03/04/18 06:59 06:59 06:59 Intake Total 1500 480 Output Total 1000 1700 Balance -1000 -200 480 Result Diagrams: 03/03/18 03:37 03/03/18 03:37 <Jose Raul Mendoza - Last Filed: 03/03/18 11:42> Phys Exam - Physical Examination Constitutional: NAD HEENT: moist MMs, sclera anicteric Neck: supple Respiratory: no wheezing, clear to auscultation bilateral Irregularly irregular rhythm Gastrointestinal: soft, non-tender, positive bowel sounds Musculoskeletal: no edema, pulses present Limited ROM RUE>LUE. Crepitus with ROM RUE No tenderness to palpation, no erythema Neurological: non-focal Psychiatric: A&O x 3 Skin: no rash, cap refill <2 seconds <Purvi Brock - Last Filed: 03/03/18 11:16> Dx/Plan (1) UTI (urinary tract infection) Status: Acute Qualifiers: Urinary tract infection type: acute cystitis Hematuria presence: without hematuria Qualified Code(s): N30.00 - Acute cystitis without hematuria (2) Shoulder joint effusion Code(s): M25.419 - EFFUSION, UNSPECIFIED SHOULDER Status: Acute (3) Osteoarthritis Code(s): M19.90 - UNSPECIFIED OSTEOARTHRITIS, UNSPECIFIED SITE Status: Chronic (4) Subtherapeutic international normalized ratio (INR) Code(s): R79.1 - ABNORMAL COAGULATION PROFILE Status: Acute (5) Atrial fibrillation Code(s): I48.91 - UNSPECIFIED ATRIAL FIBRILLATION Status: Chronic - Plan Plan: 82 yo F with R shoulder pain and fever Right shoulder joint effusion likely 2/2 OA -no recent trauma or surgery, received steroid injection for OA in [address] Carvalho along with arthrocentesis which assisted with pain -h/o of needing joint aspiration for similar presentation -no signs of sepsis - no systemic sxs aside from presenting fever of 102, afebrile overnight -CRP elevated at 19.54, ESR elevated at 66 -Shoulder XR showed degenerative changes, questionable osteolytic defect of proximal humeral metadiaphysis, and probable large joint effusion -u/s of right shoulder shows large effusion consistent with prior exams; appears chronic -Blood Cx NGTD -acetaminophen and motrin for fever and pain Febrile UTI -UA showed mod LE and blood, urine dark, suprapubic pain -Prior hx of recurrent UTIs all presenting similar to this admission -s/p cefepime x1 in ED, ceftriaxone IM yesterday; d/c on oral cefdinir -Urine cx NGTD -Pt asymptomatic today Chronic Afib controlled with Coumadin -Followed by Dr. Portillo for management -Rate controlled in 70s, continue atenolol -On coumadin, last INR drawn last Friday, was found to be subtherapeutic so inc. coumadin dose (takes 3mg daily, 3.5 tuesdays). INR 2.1 prior to d/c -Will monitor on tele Subtherapeutic INR -INR 1.9 in ED; 2.1 this AM -Last joint tap in 2016 was done outpt. and coumadin was not held. Chronic Hyponatremia -135 this AM -prior admissions show Na in similar range, appears chronic HTN -stable, will resume home amlodipine, benazepril, atenolol HLD -stable, will resume home meds Hypothyroidism -stable, will resume home meds Code: Full Diet: HH DVT ppx: coumadin Dispo: Patient stable. Plan for d/c home today. Patient has appt with ortho at 11:00 this AM for routine f/u (Dr. Carvalho). <Purvi Brock - Last Filed: 03/03/18 11:16> Attending Addendum - Attending Addendum Date/Time: 03/03/18 [id number] I personally evaluated the patient and discussed the management with Dr. Brock. I agree with and repeated the History, Examination, Assessment and Plan documented above with any addition or exceptions noted below. No c/o shoulder pain for me this AM. Tells me her shoulder has gotten better since being admitted. No abd pain, n/v/f or dysuria/urgency. Unchanged RUE exam from yesterday. No erythema, no TTP, unchanged A/PROM, unchanged effusion. Abd NTTP. In light of above, as well as sono that was c/w previous and XR that is quite consistent with previous will plan on discharge as she has follow up with orthopedics at 11 AM today. I discussed the possibility of joint and bone infection, but in light of no change in her symptoms in relation to her chronic pain I feel comfortable, as does the patient, with discharge and orthopedic follow up instead of aspiration and possible MRI in house. Discussed with patient and family who voiced understanding and agreement. Will transition to PO antibiotics for UTI. Strict return to ED warnings discussed. <Jose Raul Mendoza - Last Filed: 03/03/18 11:42>
[2018-03-03 08:08] VITALS: BP 132/58
[2018-03-03] MEDS: Atenolol 50 MG TAB PO SCH (08:26)
[2018-03-03] MEDS: Amlodipine 10 MG TAB PO SCH (08:27)
[2018-03-03 08:54] LABS: INR-International Normal Ratio 1.8; Prothrombin Time 21.3 SEC (12.0-14.7)
[2018-03-03] MEDS ORDERED: Warfarin Sodium 1.5 MG TAB PO SCH (17:00)
--- NOTE | 2018-03-07 21:22 | EKG ---
Test Reason : Blood Pressure : / mmHG Vent. Rate : 071 BPM Atrial Rate : 074 BPM P-R Int : 000 ms QRS Dur : 096 ms QT Int : 400 ms P-R-T Axes : 000 076 -45 degrees QTc Int : 434 ms Atrial fibrillation T wave inversion II, III,aVF Abnormal ECG Confirmed by PJ GUAMAN DO ([id number]), electronic news gathering editor BENJAMÍN ORTEGA ([id number] on 03/07/2018 9:22:38 PM Referred By: Confirmed By:PJ GUAMAN DO
== END 2018-03-03 09:13 | disposition home or self-care (01) ==
LOC: ERS 16:23 → 2SW 18:40
PROVIDERS: ADMIT Family Medicine; ATTEND Family Medicine
DX: M25.411 Effusion, right shoulder (principal); E03.9 Hypothyroidism, unspecified; E78.5 Hyperlipidemia, unspecified; I10 Essential (primary) hypertension; M19.90 Unspecified osteoarthritis, unspecified site; I48.91 Unspecified atrial fibrillation; R79.1 Abnormal coagulation profile; E87.1 Hypo-osmolality and hyponatremia; N30.00 Acute cystitis without hematuria; Z85.72 Personal history of non-Hodgkin lymphomas; Z79.82 Long term (current) use of aspirin; Z79.01 Long term (current) use of anticoagulants; Z79.899 Other long term (current) drug therapy; Z91.041 Radiographic dye allergy status
CPT/HCPCS: 51701; 71045; 73030; 76999; 80048 ×2; 80053; 83605; 85025 ×3; 85610 ×3; 85652; 85730 ×2; 86140; 87040; 87086; 90670; 93005; 96365; 96366; 96367; 99285; G0009; G0378 ×2; 36415; 81003; 81015; 90471; A4353; J0692; J0696; J3370; J7050

== ENCOUNTER 2019-02-28 09:15 | Inpatient (IN) | payer MEDICARE, OTHER ==
[2019-02-28 10:06] LABS: #Eosinphils 0.1 thou/uL (0.0-0.7); #Lymphocytes 1.5 thou/uL (1.20-3.40); #Monocytes 1.1 thou/uL (0.11-0.59); #Neutrophils 9.7 thou/uL (1.40-6.50); %Basophils 0.3 % (0.0-1.0); %Eosinophils 0.6 % (0.0-10.0); %Lymphocytes 12.2 % (21.0-51.0); %Monocytes 8.5 % (0.0-10.0); %Neutrophils 78.4 % (42.0-75.0); Hemoglobin 13.2 g/dL (12.0-16.0); Mean Corpuscular HGB CONC 33.6 g/dL (32.0-36.0); Mean Corpuscular Hemoglobin 30.4 pg (27.0-31.0); Mean Corpuscular Volume 90.6 fL (78.0-98.0); Mean Platelet Volume 8.4 fL (7.4-10.4); Platelet Count 189 thou/uL (130-400); Red Blood Cell (RBC) Count 4.34 mill/uL (4.20-5.40); White Blood Cell (WBC) Count 12.4 thou/uL (4.8-10.8)
[2019-02-28 10:12] LABS: INR-International Normal Ratio 2.5; PTT 44.8 SEC (22.9-36.1); Prothrombin Time 26.4 SEC (12.0-14.7)
[2019-02-28] MEDS ORDERED: Pantoprazole 40 MG VIAL ONE (10:23)
[2019-02-28 10:24] LABS: ALT (SGPT) 15 U/L (8-55); AST (SGOT) 22 U/L (5-34); Alkaline Phosphatase 91 U/L (40-150); Anion Gap 15 mmol/L (10-20); BUN (Urea Nitrogen) 14 mg/dL (9.8-20.1); Bilirubin, Total 0.8 mg/dL (0.2-1.2); Calc. Creatinine Clearance 0 mL/min (70-130); Calcium 9.7 mg/dL (7.8-10.44); Carbon Dioxide 21 mmol/L (23-31); Chloride 99 mmol/L (98-107); Estimated GFR-MDRD 64; Glucose 97 mg/dL (83-110); Potassium 3.9 mmol/L (3.5-5.1); Sodium 131 mmol/L (136-145)
[2019-02-28 11:29] LABS: Bacteria/HPF None Seen HPF (None Seen); Bilirubin Negative (Negative); Blood, Urine Negative (Negative); Clarity Clear (Clear); Glucose, Urine (Dipstick) Normal (Negative); Leukocyte 25 Leu/uL (Negative); Nitrite Negative (Negative); Protein, Urine (Dipstick) Negative (Neg-Trace); RBC/HPF 0-3 HPF (0-3); Squamous Epithelial None Seen HPF (0-3); Urobilinogen Normal mg/dL (Less than 2)
[2019-02-28] MEDS ORDERED: hydrALAZINE 20 MG/ML VIAL SLOW IVP PRN (14:14)
[2019-02-28 14:58] VITALS: BMI 25.9
[2019-02-28 15:17] LABS: Hemoglobin 12.4 g/dL (12.0-16.0)
[2019-02-28] MEDS: Dextrose 5 % And 0.9 % NaCl 1,000 ML IV SCH (15:32)
--- NOTE | 2019-02-28 19:15 | HP ---
REASON FOR ADMISSION: Rectal bleed. HISTORY OF PRESENT ILLNESS: This is an 83-year-old female patient, who is presenting with rectal bleeding history going back to the day before her presentation. She went to the bathroom after sensing cramping in her abdomen. She had gush of diarrhea. She felt somewhat lightheaded and diaphoretic during that episode. Then, she went to bed and this morning she went to the bathroom. She moved her bowels and it was all blood, bright and red. She went again to the bathroom and had another episode, but the amount was less than the previous one, the previous one was a big amount as per the patient. She did not have any lightheadedness and she did not lose consciousness. She did not have any abdominal pain. The patient did have a colonoscopy done 4 years ago that showed polyps and she is known to have diverticulosis as per her. In the ER, she appears to be doing well, in no acute distress. Her last rectal bleed episode was approximately 4 hours ago. The patient is known to have atrial fibrillation. She is on Coumadin. I did review her records and her last admission was approximately a year ago for urinary tract infection and shoulder pain. She had another one previous to that for UTI and sepsis. Since then, she has been doing well. No recent diagnoses or further hospitalizations. PAST MEDICAL HISTORY: 1. Chronic atrial fibrillation, on Coumadin. 2. High blood pressure. 3. High cholesterol. 4. Hypothyroidism. 5. Diverticulosis/diverticulitis. 6. Lymphoma; as per the patient, non-Hodgkin's, monitored by Oncology, been stable for past 8 years. 7. Post total knee replacement. 8. Severe mitral regurgitation. 9. Cataract surgery. SOCIAL HISTORY: She does not smoke and does not drink alcohol. FAMILY HISTORY: Positive for coronary artery disease. ALLERGIES: ASPIRIN. REVIEW OF SYSTEMS: All systems reviewed. Except the above-mentioned rectal bleed, found to be negative. PHYSICAL EXAMINATION: GENERAL: She is awake, alert, oriented, does not appear in distress. VITAL SIGNS: Her blood pressure is 160/73, her heart rate is 82, temperature is 97.1, saturating 99% on room air. HEENT: Head is nontraumatic and normocephalic. Pupils are equal and reactive. Extraocular muscles are intact. Nonicteric sclerae. Well-injected conjunctivae. Oral mucosa normal. Nasal mucosa normal. NECK: Supple. No adenopathy. No murmur. Thyroid is not palpable. Trachea is midline. No supraclavicular lymphadenopathy. HEART: S1 and S2 irregular. Systolic murmur is heard. No displacement of PMI. LUNGS: Clear to auscultation bilaterally. No wheezes. No rhonchi. No crackles. ABDOMEN: Bowel sounds are hyperactive. Abdomen is soft and nontender. EXTREMITIES: No lower extremity edema on the left, but there is some edema on the right lower extremity. NEUROLOGIC: She is moving all her 4 extremities. Sensory function appears to be intact. Cranial nerves are intact. LABORATORY DATA: EKG shows atrial fibrillation, nonspecific T-wave changes per my read. Blood work shows WBC of 12.4; hemoglobin 13.2, her baseline is around 12; platelets of 189; neutrophil count 78.4%. Her INR is 2.5 and PTT 44.8. Sodium is 131, potassium 3.9, creatinine 0.85. ASSESSMENT AND PLAN: This is an 83-year-old female patient, who is presenting with 2 episodes of rectal bleeds, last one was 4 hours ago. She is on Coumadin. Otherwise, her vitals are stable. 1. Cardiac: The patient will be admitted to telemetry. Her blood pressure is on the higher side. We will provide her with IV medication for blood pressure control. We will be somewhat conservative not to lower her blood pressure a lot. We will hold her Coumadin since she is actively bleeding and we will recheck her INR. 2. Gastroenterology: The patient has rectal bleeding. Most likely, she has lower gastrointestinal bleed. She did receive a dose of Protonix in Emergency Room. I do not think we need to reverse her Coumadin as her last episode was 4 hours ago, so we will hold it and let her INR normalize. We will continue to do serial H and H. I did call Gastroenterology to see her at some point. We will keep her n.p.o. except for ice chips and medication. 3. For deep venous thrombosis prophylaxis, she would be on sequential compression devices. 4. For her hypothyroidism, we will continue with her levothyroxine. 5. Neurology: She did complain of an episode of numbness yesterday involving her left lower extremity and her right lower extremity became suddenly swollen. She is on Coumadin. Her INR is therapeutic. I doubt that this is deep venous thrombosis. Today, she does not have these symptoms. I would continue to monitor that complaint since my neurological examination did not reveal any deficit in the right lower extremity. I did discuss in length with her the code status and she wishes to be a full code. Job ID: [id number]
[2019-02-28 21:10] LABS: #Eosinphils 0.1 thou/uL (0.0-0.7); #Lymphocytes 2.1 thou/uL (1.20-3.40); #Monocytes 1.1 thou/uL (0.11-0.59); #Neutrophils 8.3 thou/uL (1.40-6.50); %Basophils 0.3 % (0.0-1.0); %Eosinophils 0.9 % (0.0-10.0); %Lymphocytes 17.9 % (21.0-51.0); %Monocytes 9.5 % (0.0-10.0); %Neutrophils 71.4 % (42.0-75.0); Hemoglobin 12.3 g/dL (12.0-16.0); Mean Corpuscular HGB CONC 34.2 g/dL (32.0-36.0); Mean Corpuscular Hemoglobin 30.6 pg (27.0-31.0); Mean Corpuscular Volume 89.5 fL (78.0-98.0); Mean Platelet Volume 8.4 fL (7.4-10.4); Platelet Count 178 thou/uL (130-400); Red Blood Cell (RBC) Count 4.01 mill/uL (4.20-5.40); White Blood Cell (WBC) Count 11.7 thou/uL (4.8-10.8)
[2019-02-28] MEDS: Amitriptyline HCl 10 MG TAB PO SCH (21:32)
[2019-02-28] MEDS: Montelukast Sodium 10 mg Tablet PO SCH (21:32)
[2019-02-28] MEDS: Pantoprazole 40 MG VIAL IVP SCH (22:57)
[2019-03-01] MEDS: Dextrose 5 % And 0.9 % NaCl 1,000 ML IV SCH ×2 (05:21→22:00)
[2019-03-01 07:22] LABS: #Basophils 0.1 thou/uL (0.0-0.2); #Eosinphils 0.1 thou/uL (0.0-0.7); #Lymphocytes 1.5 thou/uL (1.20-3.40); #Neutrophils 9.1 thou/uL (1.40-6.50); %Basophils 0.5 % (0.0-1.0); %Eosinophils 1.3 % (0.0-10.0); %Lymphocytes 12.6 % (21.0-51.0); %Monocytes 8.3 % (0.0-10.0); %Neutrophils 77.3 % (42.0-75.0); Hemoglobin 12.8 g/dL (12.0-16.0); Mean Corpuscular HGB CONC 34.1 g/dL (32.0-36.0); Mean Corpuscular Hemoglobin 30.4 pg (27.0-31.0); Mean Corpuscular Volume 89.2 fL (78.0-98.0); Mean Platelet Volume 8.4 fL (7.4-10.4); Platelet Count 171 thou/uL (130-400); RBC Distribution Width 12.8 % (11.5-14.5); Red Blood Cell (RBC) Count 4.22 mill/uL (4.20-5.40); White Blood Cell (WBC) Count 11.7 thou/uL (4.8-10.8)
[2019-03-01 07:26] LABS: INR-International Normal Ratio 2.9; Prothrombin Time 30.4 SEC (12.0-14.7)
[2019-03-01 07:40] LABS: Anion Gap 13 mmol/L (10-20); BUN (Urea Nitrogen) 5 mg/dL (9.8-20.1); Calc. Creatinine Clearance 73 mL/min (70-130); Calcium 9.1 mg/dL (7.8-10.44); Carbon Dioxide 24 mmol/L (23-31); Chloride 103 mmol/L (98-107); Estimated GFR-MDRD Greater than 90; Glucose 107 mg/dL (83-110); Potassium 3.1 mmol/L (3.5-5.1); Sodium 137 mmol/L (136-145)
[2019-03-01] MEDS: Fluticasone Propionate Nasal Spray 16 gm Bottle NASAL SCH (08:17)
[2019-03-01] MEDS: Pantoprazole 40 MG VIAL IVP SCH ×2 (08:22→23:39)
[2019-03-01] MEDS ORDERED: Acetaminophen 325 MG TAB PO PRN (14:15)
--- NOTE | 2019-03-01 18:03 | PDOC.HOSPP ---
- Subjective Encounter Date: 03/01/19 Subjective: She did not have anymore bleeding and feels well, she is anxious to know he cause of the bleed. - Objective Vital Signs & Weight: Vital Signs (12 hours) Temp Pulse Resp BP Pulse Ox 03/01/19 15:26 98 F 84 16 129/58 L 95 03/01/19 11:50 98.3 F 82 16 125/65 96 03/01/19 08:14 98.6 F 88 18 129/61 95 Weight Weight 146 lb 3.2 oz I&O: 02/28/19 03/01/19 03/02/19 06:59 06:59 06:59 Intake Total 1117 Balance 1117 Result Diagrams: 03/01/19 07:11 03/01/19 07:11 Hospitalist ROS - Medication Medications: Active Medications Generic Name Dose Route Start Last Admin Trade Name Freq PRN Reason Stop Dose Admin Amitriptyline HCl 10 mg 02/28/19 21:00 02/28/19 21:32 Elavil PO 10 mg HS WILEY Administration Fluticasone Propionate 0 gm 03/01/19 09:00 03/01/19 08:17 Flonase Nasal [place] NASAL 1 spr DAILY WILEY Administration Dextrose/Sodium Chloride 1,000 mls @ 75 mls/hr 02/28/19 12:45 03/01/19 05:21 D5 0.9% Ns IV 1,000 mls .[id number] WILEY Administration Montelukast Sodium 10 mg 02/28/19 21:00 02/28/19 21:32 Singulair PO 10 mg HS WILEY Administration Pantoprazole Sodium 40 mg 02/28/19 21:00 03/01/19 08:22 Protonix IVP 40 mg Q12HR WILEY Administration - Exam General Appearance: NAD, awake alert Eye: PERRL, anicteric sclera ENT: normocephalic atraumatic, no oropharyngeal lesions, moist mucosa Neck: supple, symmetric, no JVD, no thyromegaly, no lymphadenopathy, no carotid bruit Heart: RRR, no murmur, no gallops, no rubs, normal peripheral pulses Respiratory: CTAB, no wheezes, no rales, no ronchi, normal chest expansion, no tachypnea, normal percussion Gastrointestinal: soft, non-tender, non-distended, normal bowel sounds, no palpable masses, no hepatomegaly, no splenomegaly, no bruit Extremities: no cyanosis, no clubbing, no edema Musculoskeletal: normal tone, normal strength, no muscle wasting Hosp A/P (1) GI bleed Code(s): K92.2 - GASTROINTESTINAL HEMORRHAGE, UNSPECIFIED Status: Acute (2) Hypothyroidism Code(s): E03.9 - HYPOTHYROIDISM, UNSPECIFIED Status: Chronic (3) Atrial fibrillation Code(s): I48.91 - UNSPECIFIED ATRIAL FIBRILLATION Status: Chronic (4) HTN (hypertension) Code(s): I10 - ESSENTIAL (PRIMARY) HYPERTENSION Status: Chronic Qualifiers: Hypertension type: essential hypertension Qualified Code(s): I10 - Essential (primary) hypertension - Plan she had no further bleeding but her INR is still elevated although coumadin was stopped. I will give vit K adn FFP and recheck her in am , she will be going for colonoscopy at some point tomorrow or after tomorrow.
[2019-03-01] MEDS ORDERED: Phytonadione 10 MG/ML AMP PO SCH (18:15)
--- NOTE | 2019-03-01 21:53 | CON ---
DATE OF CONSULTATION: 03/01/2019 REASON FOR CONSULTATION: Hematochezia. CONSULTING PROVIDER: Germania Stevenson MD HISTORY OF PRESENT ILLNESS: The patient is an 83-year-old female with past medical history of lymphoma, diverticulosis, hypothyroidism, hyperlipidemia, hypertension, severe mitral regurgitation, and atrial fibrillation, on anticoagulation, presenting with complaints of hematochezia. She states that she was in her usual state of health until approximately 2 days ago when she had acute onset of increased abdominal cramping, nausea, and diaphoresis in the afternoon that prompted her to have a semi-solid liquid bowel movement. She continued to have increased abdominal cramping and nausea going into that evening and woke up the next morning and had a larger bloody bowel movement, characterized as bright red blood per rectum that "filled the commode with blood." She had one further episode of a larger bloody bowel movement that prompted her to seek healthcare assistance at the [facility] ER. While in the ER, she had labs drawn, which did not show any significant derangement in her H and H and she was ultimately admitted to the observation service for further monitoring. Throughout yesterday, the patient stated that she has continued to have smaller bloody bowel movements, characterized as bright red blood both on the toilet paper and in the toilet, but has not had any further episodes of hematochezia since earlier last night. Currently, she denies any nausea, vomiting, fevers, chills, hematemesis, melena, dysphagia, odynophagia, or weight loss. Prior to these episodes, she was having approximately 1 solid bowel movement per day with no difficulty with defecation. She has not had any previous episodes of hematochezia in the past nor does she have a history of hemorrhoids. Her last colonoscopy was approximately 4-5 years ago with normal findings per patient and done by in [place]. She denies any family history of colon cancer. REVIEW OF SYSTEMS: A 10-category review of systems was obtained with all responses negative except for the pertinent positives as listed in HPI. PAST MEDICAL HISTORY: As per HPI. PAST SURGICAL HISTORY: Total knee replacement, cataract surgery. FAMILY HISTORY: Denies any GI malignancies. SOCIAL HISTORY: Denies any tobacco, alcohol, or illicit drug use. OUTPATIENT MEDICATIONS: Reviewed. ALLERGIES: ASPIRIN. PHYSICAL EXAMINATION: VITAL SIGNS: Temperature 98, pulse 84, blood pressure 129/58, respiratory rate 16, saturating 95% on room air. GENERAL: The patient was sitting in a chair at bedside, in no acute distress. Alert and oriented x4. HEENT: Normocephalic, atraumatic. NECK: Supple. No JVD or scleral icterus noted. CARDIOVASCULAR: Irregularly irregular rhythm with a diastolic murmur best heard at the left lower sternal border in the midclavicular line. RESPIRATORY: Clear to auscultation bilaterally with no discernible wheezes or rales. ABDOMEN: Normoactive bowel sounds. Soft, nontender, nondistended. EXTREMITIES: No cyanosis, clubbing, or edema. LABORATORY DATA: CBC with a white blood cell count of 11.7, hemoglobin 12.8, hematocrit 37.7, platelets 171. INR 2.9. Chemistry with a sodium of 137, potassium 3.1, chloride 103, CO2 of 24, BUN 5, creatinine 0.59, glucose 107, AST 22, ALT 15, alkaline phosphatase 91, total bilirubin 0.8. IMAGING DATA: No current GI imaging is available for review. ASSESSMENT AND PLAN: The patient is an 83-year-old female with past medical history of lymphoma, hypothyroidism, hyperlipidemia, hypertension, diverticulosis, severe mitral regurgitation, and atrial fibrillation, on full anticoagulation with Coumadin, presenting with complaints of hematochezia. Hematochezia: The patient states that she was in her usual state of health until yesterday when she had the acute onset of larger volume bloody bowel movements, characterized as bright red blood that was present both in the toilet and on the toilet paper. With these continued bloody bowel movements, it prompted her to seek healthcare assistance, but while in the ER, she was noted to have no change in her H and H from baseline despite an INR of 2.5. She was ultimately admitted to observation and has not had any further derangement in her H and H, which is now actually up trending despite an INR of 2.9 today. At this point, the differential could include hemorrhoidal bleeding (more likely), colitis, arteriovenous malformation (less likely), Dieulafoy lesion (less likely), diverticular bleed (less likely due to its arterial nature), inflammatory bowel disease and/or GI neoplasm (much less likely given negative colonoscopy 4-5 years ago). Given her normal H and H and lack of further episodes of hematochezia during her hospitalization today, I recommended a higher fiber diet and close followup within the GI Clinic, but the patient would like to proceed with colonoscopy for further evaluation at this time. RECOMMENDATIONS: 1. We will continue to trend her H and H and transfuse as necessary to maintain an H and H of 7/21. 2. Continue to monitor clinically for signs of active GI bleeding. 3. We would give the patient vitamin K and FFP and attempt to reverse her INR to more normal levels prior to colonoscopy. 4. We would place the patient on a clear liquid diet tomorrow with GoLYTELY prep tomorrow night in anticipation of the colonoscopy on Friday. 5. We would avoid any anticoagulation during this admission in light of her GI bleed. We will continue to follow. Please call with any questions. Job ID: [id number]
[2019-03-01] MEDS: Amitriptyline HCl 10 MG TAB PO SCH (21:56)
[2019-03-01] MEDS: Montelukast Sodium 10 mg Tablet PO SCH (21:56)
[2019-03-02 05:21] LABS: INR-International Normal Ratio 1.6; Prothrombin Time 18.9 SEC (12.0-14.7)
[2019-03-02 05:28] LABS: Anion Gap 12 mmol/L (10-20); BUN (Urea Nitrogen) 7 mg/dL (9.8-20.1); Calc. Creatinine Clearance 77 mL/min (70-130); Calcium 8.8 mg/dL (7.8-10.44); Carbon Dioxide 20 mmol/L (23-31); Chloride 107 mmol/L (98-107); Estimated GFR-MDRD Greater than 90; Glucose 95 mg/dL (83-110); Sodium 136 mmol/L (136-145)
[2019-03-02 05:32] LABS: Potassium 2.8 mmol/L (3.5-5.1)
[2019-03-02 06:08] LABS: #Basophils 0.1 thou/uL (0.0-0.2); #Eosinphils 0.1 thou/uL (0.0-0.7); #Lymphocytes 2.2 thou/uL (1.20-3.40); #Monocytes 1.1 thou/uL (0.11-0.59); #Neutrophils 6.6 thou/uL (1.40-6.50); %Basophils 0.7 % (0.0-1.0); %Eosinophils 0.6 % (0.0-10.0); %Lymphocytes 21.6 % (21.0-51.0); %Monocytes 11.2 % (0.0-10.0); Hemoglobin 11.9 g/dL (12.0-16.0); Mean Corpuscular HGB CONC 33.9 g/dL (32.0-36.0); Mean Corpuscular Hemoglobin 30.5 pg (27.0-31.0); Mean Corpuscular Volume 89.9 fL (78.0-98.0); Mean Platelet Volume 9.5 fL (7.4-10.4); Platelet Count 115 thou/uL (130-400); Platelet Morphology Comment Appears Decreased; RBC Distribution Width 12.9 % (11.5-14.5); Red Blood Cell (RBC) Count 3.89 mill/uL (4.20-5.40)
[2019-03-02] MEDS ORDERED: Potassium Chloride 40 MEQ in Premix Bag 1 BAG IVPB SCH (08:15)
[2019-03-02] MEDS: Dextrose 5 % And 0.9 % NaCl 1,000 ML IV SCH ×2 (09:04→15:45)
[2019-03-02] MEDS: Potassium Chloride 20 MEQ in Premix Bag 1 BAG IVPB SCH ×2 (09:05→11:30)
[2019-03-02] MEDS: Fluticasone Propionate Nasal Spray 16 gm Bottle NASAL SCH (09:07)
[2019-03-02] MEDS: Pantoprazole 40 MG VIAL IVP SCH ×2 (09:07→21:27)
[2019-03-02] MEDS ORDERED: GoLYTELY 4,000 ml Bottle PO SCH (09:45)
--- NOTE | 2019-03-02 11:43 | PRG ---
DATE OF SERVICE: 03/02/2019 REASON FOR CONSULTATION: Hematochezia. SUBJECTIVE: The patient states that overnight she had no acute events or problems and no further episodes of hematochezia. She has not had a bowel movement over the last 12 to 24 hours. Otherwise, she denies any nausea, vomiting, fevers, chills, abdominal pain, hematemesis, melena, or hematochezia. OBJECTIVE: VITAL SIGNS: Temperature 97.5, pulse 85, blood pressure 135/64, respiratory rate 18, and saturating 98% on room air. GENERAL: The patient was sitting in a chair at bedside, in no acute distress. Alert and oriented x4. CARDIOVASCULAR: Irregularly irregular rhythm with 3/6 systolic murmur best heard at the left lower sternal border in the midclavicular line. RESPIRATORY: Clear to auscultation bilaterally. ABDOMEN: Normoactive bowel sounds. Soft, nontender, and nondistended. EXTREMITIES: No cyanosis, clubbing, or edema. LABORATORY DATA: CBC with a white blood cell count of 10, hemoglobin 11.9, hematocrit 35, and platelets 115. INR 1.6. Chemistry with a sodium of 136, potassium 2.8, chloride 107, CO2 of 20, BUN 7, creatinine 0.56, and glucose 95. IMAGING DATA: No current GI imaging is available for review. ASSESSMENT AND PLAN: The patient is an 83-year-old female with past medical history of lymphoma, hypothyroidism, hyperlipidemia, hypertension, diverticulosis, severe mitral regurgitation, mitral valve regurgitation, and atrial fibrillation on full anticoagulation, presenting with complaints of hematochezia. Hematochezia: The patient is presenting with acute onset of multiple grossly bloody bowel movements approximately 1 day prior to admission with admitting labs showing no change in her baseline H and H, but an INR of 2.5. Over the last 12 to 24 hours, she has not had any further episodes of bowel movements or hematochezia with an unknown etiology for her hematochezia at this time. The patient was still like to proceed with colonoscopy, so we will place her on a clear liquid diet today with GoLYTELY tonight in anticipation for the procedure. Recommendations: 1. We will continue to trend her H and H and transfuse as necessary to maintain an H and H of 7/21. 2. Continue to monitor clinically for signs of active gastrointestinal bleeding. 3. Would place the patient on a clear liquid diet today with GoLYTELY prep tonight (administering 2 L at 8 p.m. and the remaining 2 L at 3 a.m. tomorrow morning) in preparation for the colonoscopy. 4. Avoid any anticoagulation during this admission in light of her recent gastrointestinal bleed. We will continue to follow. Please call with any questions. Job ID: [id number]
[2019-03-02 13:37] LABS: Anion Gap 10 mmol/L (10-20); BUN (Urea Nitrogen) 7 mg/dL (9.8-20.1); Calc. Creatinine Clearance 73 mL/min (70-130); Calcium 9.4 mg/dL (7.8-10.44); Carbon Dioxide 27 mmol/L (23-31); Chloride 103 mmol/L (98-107); Estimated GFR-MDRD Greater than 90; Glucose 94 mg/dL (83-110); Magnesium 1.7 mg/dL (1.6-2.6); Potassium 3.5 mmol/L (3.5-5.1); Sodium 136 mmol/L (136-145)
--- NOTE | 2019-03-02 16:19 | PDOC.HOSPP ---
- Subjective Encounter Date: 03/02/19 Subjective: no complaints , she had no further rectal bleeding. - Objective Vital Signs & Weight: Vital Signs (12 hours) Temp Pulse Resp BP Pulse Ox 03/02/19 15:48 97.9 F 83 18 165/74 H 98 03/02/19 11:54 97.6 F 99 16 143/67 H 98 03/02/19 08:04 97.5 F L 85 18 135/64 98 Weight Weight 146 lb 3.2 oz Most Recent Monitor Data Heart Rate from ECG 88 I&O: 03/01/19 03/02/19 03/03/19 06:59 06:59 06:59 Intake Total 1117 1781 Balance 1117 1781 Result Diagrams: 03/02/19 04:33 03/02/19 13:12 Hospitalist ROS - Medication Medications: Active Medications Generic Name Dose Route Start Last Admin Trade Name Freq PRN Reason Stop Dose Admin Acetaminophen 650 mg 03/01/19 14:15 03/01/19 22:03 Tylenol PO 650 mg Q6H PRN Administration Headache/Fever or Pain Amitriptyline HCl 10 mg 02/28/19 21:00 03/01/19 21:56 Elavil PO 10 mg HS WILEY Administration Fluticasone Propionate 0 gm 03/01/19 09:00 03/02/19 09:07 Flonase Nasal [place] NASAL 1 spr DAILY WILEY Administration Dextrose/Sodium Chloride 1,000 mls @ 75 mls/hr 02/28/19 12:45 03/02/19 15:45 D5 0.9% Ns IV Not Given .[id number] WILEY Montelukast Sodium 10 mg 02/28/19 21:00 03/01/19 21:56 Singulair PO 10 mg HS WILEY Administration Pantoprazole Sodium 40 mg 02/28/19 21:00 03/02/19 09:07 Protonix IVP 40 mg Q12HR WILEY Administration Sodium Chloride 10 ml 03/02/19 09:00 03/02/19 09:07 Flush - Normal Saline IVF Not Given Q12HR WILEY - Exam General Appearance: NAD, awake alert Eye: PERRL, anicteric sclera ENT: normocephalic atraumatic, no oropharyngeal lesions, moist mucosa Neck: supple, symmetric, no JVD, no thyromegaly, no lymphadenopathy, no carotid bruit Heart: RRR, no murmur, no gallops, no rubs, normal peripheral pulses Respiratory: CTAB, no wheezes, no rales, no ronchi, normal chest expansion, no tachypnea, normal percussion Gastrointestinal: soft Extremities: no cyanosis, no clubbing, no edema Skin: normal turgor, no lesions, no rashes Neurological: CN's grossly intact, normal sensation to touch, no weakness, no focal deficits, no new deficit Hosp A/P (1) GI bleed Code(s): K92.2 - GASTROINTESTINAL HEMORRHAGE, UNSPECIFIED Status: Acute (2) Hypothyroidism Code(s): E03.9 - HYPOTHYROIDISM, UNSPECIFIED Status: Chronic (3) Atrial fibrillation Code(s): I48.91 - UNSPECIFIED ATRIAL FIBRILLATION Status: Chronic (4) HTN (hypertension) Code(s): I10 - ESSENTIAL (PRIMARY) HYPERTENSION Status: Chronic Qualifiers: Hypertension type: essential hypertension Qualified Code(s): I10 - Essential (primary) hypertension - Plan she had no further bleeding but her INR is reversed with vit K and FFP. she will have colono in am, I will continue to replace her k and mag
[2019-03-02] MEDS ORDERED: Potassium Chloride 20 MEQ TAB PO SCH (16:30)
[2019-03-02] MEDS: Amitriptyline HCl 10 MG TAB PO SCH (21:27)
[2019-03-02] MEDS: Montelukast Sodium 10 mg Tablet PO SCH (21:27)
[2019-03-03 05:50] LABS: #Lymphocytes 1.4 thou/uL (1.20-3.40); %Basophils 0.2 % (0.0-1.0); %Eosinophils 0.5 % (0.0-10.0); %Lymphocytes 16.2 % (21.0-51.0); %Monocytes 11.6 % (0.0-10.0); %Neutrophils 71.5 % (42.0-75.0); Hemoglobin 12.4 g/dL (12.0-16.0); Mean Corpuscular HGB CONC 34.1 g/dL (32.0-36.0); Mean Corpuscular Hemoglobin 30.4 pg (27.0-31.0); Mean Platelet Volume 8.7 fL (7.4-10.4); Platelet Count 190 thou/uL (130-400); RBC Distribution Width 12.6 % (11.5-14.5); Red Blood Cell (RBC) Count 4.09 mill/uL (4.20-5.40); White Blood Cell (WBC) Count 8.4 thou/uL (4.8-10.8)
[2019-03-03 05:55] LABS: INR-International Normal Ratio 1.3
[2019-03-03 06:16] LABS: Anion Gap 13 mmol/L (10-20); BUN (Urea Nitrogen) 5 mg/dL (9.8-20.1); Calc. Creatinine Clearance 72 mL/min (70-130); Calcium 9.3 mg/dL (7.8-10.44); Carbon Dioxide 23 mmol/L (23-31); Chloride 102 mmol/L (98-107); Estimated GFR-MDRD Greater than 90; Glucose 108 mg/dL (83-110); Magnesium 1.8 mg/dL (1.6-2.6); Potassium 3.2 mmol/L (3.5-5.1); Sodium 135 mmol/L (136-145)
[2019-03-03] MEDS: Pantoprazole 40 MG VIAL IVP SCH (08:56)
[2019-03-03] MEDS: Dextrose 5 % And 0.9 % NaCl 1,000 ML IV SCH ×2 (09:00→12:49)
[2019-03-03] MEDS ORDERED: Promethazine HCl 25 MG/ML VIAL IM PRN (09:58)
[2019-03-03] MEDS ORDERED: Promethazine HCl 25 MG/ML VIAL SLOW IVP PRN (09:58)
[2019-03-03] MEDS ORDERED: Ondansetron HCl/PF 4 MG/2 ML Vial IVP PRN (09:58)
[2019-03-03] MEDS ORDERED: Lidocaine 1% PF 5 ML VIAL ONE (10:33)
[2019-03-03] MEDS ORDERED: PROPOFOL 200 MG/20 ML VIAL ONE (10:33)
[2019-03-03 10:58] VITALS: BP 143/71
[2019-03-03 11:40] VITALS: TEMP 99.1
[2019-03-03] MEDS: Fluticasone Propionate Nasal Spray 16 gm Bottle NASAL SCH (12:48)
--- NOTE | 2019-03-03 13:54 | PDOC.EVN ---
Event Note - Event Note Event Note: k level was noted, one time dose of potassium po ordered.
[2019-03-03] MEDS ORDERED: Potassium Chloride 20 MEQ TAB PO SCH (14:00)
--- NOTE | 2019-03-03 15:39 | OP ---
DATE OF PROCEDURE: 03/03/2019 PROCEDURE PERFORMED: Colonoscopy with biopsy. PREOPERATIVE DIAGNOSIS: Rectal bleeding. POSTOPERATIVE DIAGNOSES: 1. Sigmoid diverticular disease. 2. Small hemorrhoids. 3. Focal inflammatory changes of sigmoid colon with mucosal hyperemia, edema, and some ulcerations. The findings represent most likely ischemic colitis. DESCRIPTION OF PROCEDURE: The patient was placed on her left lateral position and was given sedation by Anesthesia Department. A rectal exam was done before the scope was advanced into the rectum. The patient was found to have small hemorrhoids. No other lesions felt. A Pentax video colonoscope was first introduced into the rectum and advanced all the way to the cecum. The prep was very good. On the appendicular opening, ileocecal valve, and cecum, no pathology seen. On withdrawal of scope from the cecum to ascending colon and hepatic flexure, no pathology. On the transverse colon and splenic flexure, no pathology seen. On the descending colon, no lesion seen. The sigmoid colon showed scattered diverticula. There was an area of increased hyperemia, friability, and also some ulcerations in the sigmoid colon. These represent most likely ischemic colitis. Biopsy was obtained of the area. The sigmoid colon shows scattered diverticula. The rectum showed hemorrhoids. RECOMMENDATIONS: 1. Diet as tolerated. 2. From GI standpoint, she can be discharged home and will follow up with the GI Clinic as outpatient. Job ID: [id number]
--- NOTE | 2019-03-04 12:46 | DIS ---
DATE OF ADMISSION: 02/28/2019 DATE OF DISCHARGE: 03/03/2019 DISCHARGE DIAGNOSIS: Gastrointestinal bleed with negative esophagogastroduodenoscopy and colonoscopy. HISTORY OF PRESENT ILLNESS AND HOSPITAL COURSE: This is an 83-year-old female patient, who presented to our emergency room on 02/28/2019, complaining of rectal bleeding that occurred on the day of her presentation. She had 2 episodes of bright red blood per rectum, and since she was on Coumadin, she was admitted for further management. While she was in the hospital, her Coumadin was stopped, and GI was consulted. She never had recurrence of her rectal bleed, and her vitals were stable. Her blood pressure medications were put on hold, and IV hydralazine was used to control her blood pressure. She underwent an EGD and a colonoscopy. Her EGD was negative. Her colonoscopy showed only ischemic-type changes that did not warrant further assessment. The patient will be discharged home to resume her home medications including Coumadin. If she has recurrence of bleeding, anticoagulation needs to be re-assessed if that occurs. PHYSICAL EXAMINATION: GENERAL: Today, she is awake, alert, oriented, and does not appear in distress. VITAL SIGNS: Her blood pressure is 143/71, heart rate of 98, saturating 96% on room air. HEENT: Head is nontraumatic and normocephalic. Pupils are equally reactive. Extraocular movements are intact. Nonicteric sclerae. Well injected conjunctivae. Oral mucosa is normal. Nasal mucosa is normal. NECK: Supple. No adenopathy. No mass. Thyroid is not palpable. Trachea is midline. No supraclavicular lymphadenopathy. HEART: S1 and S2. Irregular. No murmurs. No gallops. No frictional rubs. No displacement of PMI. ABDOMEN: Bowel sounds are positive. Nontender abdomen. No hepatosplenomegaly. EXTREMITIES: No lower extremity edema. No cyanosis. NEUROLOGIC: Cranial nerves 2 through 12 within normal limits. Normal motor function. Normal sensory function and reflexes. LABORATORY DATA: Blood work shows a WBC of 8.4, hemoglobin 12.4, platelets of 190. Her sodium is 135, potassium 3.2, creatinine 0.6. Her INR is 1.3. ASSESSMENT AND PLAN: This is an 83-year-old female patient, who presented with bright red blood per rectum. She was on Coumadin. Her Coumadin was reversed completely and underwent esophagogastroduodenoscopy and colonoscopy that did not yield any underlying cause of her bleed. She is to go home and follow up with GI in couple of weeks. She is to resume her home medications including her blood pressure medications and Coumadin. She is to follow with [facility]. She does have an appointment next Friday and with her PCP in 1 week. More than a half an hour was spent in managing the patient. Job ID: [id number]
--- NOTE | 2019-03-05 09:38 | PQF ---
[employer] KAREN Kwan ZIAD MD [id number] [facility]291 [id number] CLINICAL DOCUMENTATION CLARIFICATION FORM: POST DISCHARGE Addendum to original discharge summary date: ____ Late entry note date: __ DATE: 03/05/2019 ATTN: MARYCARMEN FAROOQ MD Please exercise your independent, professional judgment in responding to the clarification form. Clinical indicators are provided on the bottom of this form for your review Please check appropriate box(s) to clarify if the following diagnosis has been ruled in or ruled out: Ischemic colitis [ ] Ruled in diagnosis [ ] Continue to treat [ ] Resolved [ ] Ruled out diagnosis [y ] Cannot rule out diagnosis [ ] Other diagnosis [ ] Unable to determine For continuity of documentation, please document condition throughout progress notes and discharge summary. Thank You. CLINICAL INDICATORS - SIGNS / SYMPTOMS / LABS -Most likely ischemic colitis- OP report, 03/03, Amena Huertas MD -The sigmoid colon shows scattered diverticula-OP report, 03/03, Amena Huertas MD -Focal inflammatory changes of sigmoid colon with mucosal hyperemia, edema and some ulcerations-OP report, 03/03, Amena Huertas MD -bright red blood per rectum-DS, 03/03, MARYCARMEN FAROOQ MD RISK FACTORS -Small hemorrhoids-OP report, 03/03, Amena Huertas MD -GI bleed with negative EGD and Colonoscopy-DS, 03/03, MARYCARMEN FAROOQ MD TREATMENTS -Colonoscopy-OP report, 03/03, Amena Huertas MD -Protonix.IV-MAR, 02/28 (This form is maintained as a part of the permanent medical record) 2014 [email or web address] All Rights Reserved [employer] Win[employer] ViewerSwati Morelesan [ not provided] [not provided] MTDD
== END 2019-03-03 16:23 | disposition home or self-care (01) | DRG 378 ==
LOC: ERS 09:15 → 2SW 11:56 → OBSVTOIN 14:14 → 2NO 22:20
PROVIDERS: ADMIT Internal Medicine; ATTEND Internal Medicine
PROC: 0DBN8ZX Excision of Sigmoid Colon, Via Natural or Artificial Opening Endoscopic, Diagnostic (ICD-10-PCS; principal; 2019-03-03)
DX: K92.2 Gastrointestinal hemorrhage, unspecified (principal); K55.9 Vascular disorder of intestine, unspecified; C85.90 Non-Hodgkin lymphoma, unspecified, unspecified site; K64.9 Unspecified hemorrhoids; K57.30 Diverticulosis of large intestine without perforation or abscess without bleeding; I48.2 Chronic atrial fibrillation; E78.5 Hyperlipidemia, unspecified; Z96.653 Presence of artificial knee joint, bilateral; I34.0 Nonrheumatic mitral (valve) insufficiency; E03.9 Hypothyroidism, unspecified; Z79.01 Long term (current) use of anticoagulants; Z98.49 Cataract extraction status, unspecified eye
CPT/HCPCS: 36415; 36430; 80048; 80053; 81003; 81015; 82274; 83735; 85025; 85610; 85730; 86850; 86900; 86901; 88305; 93005; 94760; 96361; 96374; C9113; J2001; J2704; J3430; J3475; J3480; J3490; P9059

== ENCOUNTER 2020-05-19 18:11 | Inpatient (IN) | payer MEDICARE, OTHER ==
[2020-05-19 18:48] LABS: #Basophils 0.1 thou/uL (0.0-0.2); #Eosinphils 0.2 thou/uL (0.0-0.7); #Lymphocytes 2.1 thou/uL (1.20-3.40); #Monocytes 1.1 thou/uL (0.11-0.59); #Neutrophils 5.3 thou/uL (1.40-6.50); %Basophils 0.8 % (0.0-1.0); %Eosinophils 2.4 % (0.0-10.0); %Lymphocytes 23.5 % (21.0-51.0); %Monocytes 12.5 % (0.0-10.0); %Neutrophils 60.8 % (42.0-75.0); Mean Corpuscular HGB CONC 32.6 g/dL (32.0-36.0); Mean Corpuscular Hemoglobin 29.2 pg (27.0-31.0); Mean Corpuscular Volume 89.7 fL (78.0-98.0); Mean Platelet Volume 9.1 fL (7.4-10.4); Platelet Count 182 thou/uL (130-400); RBC Distribution Width 12.4 % (11.5-14.5); Red Blood Cell (RBC) Count 4.11 mill/uL (4.20-5.40); White Blood Cell (WBC) Count 8.8 thou/uL (4.8-10.8)
[2020-05-19 19:12] LABS: ALT (SGPT) 10 U/L (8-55); AST (SGOT) 17 U/L (5-34); Albumin 3.7 g/dL (3.4-4.8); Alkaline Phosphatase 70 U/L (40-110); Anion Gap 15 mmol/L (10-20); BUN (Urea Nitrogen) 14 mg/dL (9.8-20.1); Bilirubin, Total 0.5 mg/dL (0.2-1.2); Calc. Creatinine Clearance 0 mL/min (70-130); Calcium 9.1 mg/dL (7.8-10.44); Carbon Dioxide 22 mmol/L (23-31); Chloride 100 mmol/L (98-107); Estimated GFR-MDRD 68; Globulin 3.5 g/dL (2.4-3.5); Glucose 135 mg/dL (83-110); Potassium 3.7 mmol/L (3.5-5.1); Protein, Total 7.2 g/dL (6.0-8.3); Sodium 133 mmol/L (136-145)
[2020-05-19 19:54] LABS: Bilirubin Negative (Negative); Blood, Urine 1+ (Negative); Clarity Clear (Clear); Glucose, Urine (Dipstick) Normal (Negative); Ketone, Urine Negative (Negative); Leukocyte 250 Leu/uL (Negative); Nitrite Negative (Negative); Protein, Urine (Dipstick) 20 mg/dL (Neg-Trace); Specific Gravity, Urine 1.019 (1.002-1.036); Squamous Epithelial None Seen HPF (0-3); Urobilinogen 3 mg/dL (Less than 2); pH, Urine 6.5 (5.0-9.0)
[2020-05-19] MEDS ORDERED: diphenhydrAMINE 50 MG/ML VIAL ONE (20:00)
[2020-05-19] MEDS ORDERED: methylPREDNISolone Sod Succ/PF 125 MG/2 ML VIAL ONE (20:00)
[2020-05-19] MEDS ORDERED: Famotidine/PF 20 mg/2ml Vial ONE (20:00)
[2020-05-19 20:26] LABS: Bacteria/HPF 1+ HPF (None Seen)
[2020-05-19] MEDS ORDERED: cefTRIAXone\\ROCEPHIN 1 GM VIAL ONE (21:24)
--- NOTE | 2020-05-19 21:30 | CT ---
ABDOMEN CT WITH CONTRAST PELVIC CT WITH CONTRAST 05/19/20 HISTORY: Fever. One week of urinary frequency. Dysuria. Dark urine. Pelvic rash. CORRELATION: Aortic dissection protocol 06/26/17. FINDINGS: ABDOMEN CT: Dependent atelectatic changes. Normal heart size. There are coronary artery calcifications. There is atherosclerosis of a nonaneurysmal aorta. Gallbladder is unremarkable. There does appear to be a gallstone within the lumen of the gallbladder. Portal vein is patent. There are enhancing foci in the liver which are incompletely evaluated. This focus measures 0.7 cm. The spleen, pancreas and adrenal glands have appropriate attenuation and enha ncement. No gastrohepatic, retrocrural or periportal lymphadenopathy. No mesenteric mass, lymphadenopathy, free air or free fluid. Symmetric enhancement of the kidneys. No obstructive uropathy. Bilateral renal cortical cysts are caty ntified. Small hiatal hernia is noted. Limited evaluation of the alimentary canal by the lack of oral contrast. Multiple normal caliber smal l bowel loops. Ileocecal junction is normal. Normal caliber appendix. There is scattered fecal materi al in a nondistended, nondilated colon. Extensive diverticulosis in the descending colon and sigmoid colon. No evidence of diverticulitis. 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 No pelvic mass, lymphadenopathy, free air, or free fluid . Presacral fat is preserved. There are no lytic or blastic lesions in the osseous structures. There is mild scoliotic curvature of the spine. obturator ring appears to be intact. There is an infected f luid collection with peripheral enhancement posterior to the right ischium, measuring 6.8 x 4.9 cm. I nfected fluid collection is deep to the right gluteal musculature. There is abnormal appearance of th e right greater trochanter with mild induration of the overlying soft tissues. IMPRESSION: 1. Soft tissue abscess involving the right hemipelvis posterior to the right ischium, deep to th e right gluteal muscles. 2. Extensive diverticulosis without evidence of diverticulitis. 3. Bilateral renal cortical cysts. 4. Hyperdense focus in the right hepatic lobe, incompletely evaluated. POS: PPP
[2020-05-19] MEDS ORDERED: Piperacillin/Tazobactam 4.5 GM VIAL ONE (22:43)
[2020-05-19 23:10] LABS: INR-International Normal Ratio 1.9; Prothrombin Time 22.6 sec (12.0-14.7)
[2020-05-19 23:11] LABS: PTT 58.3 sec (22.9-36.1)
[2020-05-19] MEDS ORDERED: Acetaminophen 650 MG Suppository PR PRN (23:21)
[2020-05-19] MEDS ORDERED: Vancomycin 1 GM/200 ML BAG ONE (23:35)
[2020-05-20] MEDS: Sodium Chloride 0.9% 1,000 ML IV SCH ×2 (00:41→15:45)
--- NOTE | 2020-05-20 00:51 | PDOC.BPN ---
- Brief Progress Note [id number] HP dictated
--- NOTE | 2020-05-20 02:14 | HP ---
CHIEF COMPLAINT: Fever. HISTORY OF PRESENT ILLNESS: Ms. Michaud is an 84-year-old female with past medical history of atrial fibrillation, on warfarin; lymphoma; hypothyroidism; hyperlipidemia; hypertension, among others, presents to the emergency room with a fever of 101.3. Also, patient noted dysuria and urinary frequency. The patient had dark urine. Also, the patient has been complaining of right hip pain yesterday. Workup in the emergency room, the patient was found to have urinary tract infection. Imaging studies including CT abdomen and pelvis showed soft tissue abscess involving the right hemipelvis posterior to the right ischium deep to the right gluteus muscle. ED physician consulted surgeon, who advised to admit the patient under hospice service and Surgery was consulted. The patient is on warfarin and her INR is 1.9. The rest of the lab work showed a sodium of 133, glucose 135. WBC is 8.8. INR is 1.9. PAST MEDICAL HISTORY: As mentioned above in history of present illness. PAST SURGICAL HISTORY: Bilateral knee replacement. SOCIAL HISTORY: Denies alcohol drinking, drug abuse. She is a former tobacco user. ALLERGIES: ALLERGIC TO ASPIRIN, IODINE, SHRIMP, AND STRAWBERRY. HOME MEDICATIONS: See home medication reconciliation form for updated medications. Home medications include warfarin. REVIEW OF SYSTEMS: Review of 14 systems negative except what is mentioned in history of present illness. PHYSICAL EXAMINATION: GENERAL: The patient is awake, alert, in mild distress. VITAL SIGNS: Blood pressure 134/61, temperature is 99.6, respiratory rate is 17, pulse is 78, oxygen saturation is 96% on room air. HEAD AND NECK: Head normocephalic, atraumatic. Neck is supple. No JVD. CHEST: Fair bilateral air entry. HEART: S1, S2. Regular. ABDOMEN: Soft with suprapubic tenderness. Bowel sounds present. NEUROLOGIC: Awake, alert, oriented x3. PSYCH: Normal mood. MUSCULOSKELETAL: Right hip tenderness. ASSESSMENT: 1. Right gluteal/hemipelvis abscess/fluid collection/hematoma cannot be ruled out. The patient who has is on warfarin. ? 2. Acute urinary tract infection. 3. Hypothyroidism. 4. Hypertension. 5. Hyperlipidemia. 6. History of atrial fibrillation. 7. Anticoagulated, on warfarin. PLAN: 1. Admit. 2. We will keep the patient n.p.o. for now. 3. Surgery was consulted for further management to evaluate for the soft tissue density? Abscess. Of note, the patient is on warfarin. 4. Septic workup done in the ED including urine cultures. 5. IV antibiotics. 6. Reconcile home medications. 7. DVT prophylaxis as appropriate. 8. Expected length of stay, 2 midnights or more. Case discussed with patient, family, and the ED physician. Job ID: [id number]
[2020-05-20] MEDS ORDERED: Cefepime 2 GM in Sodium Chloride 0.9% 100 ML IVPB SCH (06:00)
[2020-05-20] MEDS: Cefepime 2 GM in Sodium Chloride 0.9% 100 ML IVPB SCH (06:04)
[2020-05-20] MEDS ORDERED: Cefepime 2 GM VIAL ONE (06:57)
[2020-05-20 07:23] LABS: Anion Gap 13 mmol/L (10-20); BUN (Urea Nitrogen) 12 mg/dL (9.8-20.1); Calc. Creatinine Clearance 61 mL/min (70-130); Calcium 9.3 mg/dL (7.8-10.44); Carbon Dioxide 22 mmol/L (23-31); Chloride 104 mmol/L (98-107); Estimated GFR-MDRD 85; Glucose 159 mg/dL (83-110); Potassium 3.4 mmol/L (3.5-5.1); Sodium 136 mmol/L (136-145)
[2020-05-20 07:49] LABS: Band 15 % (5-11); Hemoglobin 13.1 g/dL (12.0-16.0); Lymphocytes 16 % (21-51); MDiff Complete? YES; Mean Corpuscular HGB CONC 33.7 g/dL (32.0-36.0); Mean Corpuscular Hemoglobin 30.1 pg (27.0-31.0); Mean Corpuscular Volume 89.2 fL (78.0-98.0); Mean Platelet Volume 8.8 fL (7.4-10.4); Neutrophil 69 % (42-75); Platelet Count 163 thou/uL (130-400); RBC Distribution Width 12.3 % (11.5-14.5); Red Blood Cell (RBC) Count 4.37 mill/uL (4.20-5.40); White Blood Cell (WBC) Count 6.5 thou/uL (4.8-10.8)
[2020-05-20] MEDS ORDERED: Vancomycin HCl 1 GM in Sodium Chloride 0.9% 250 ML 300 ML IVPB SCH (09:00)
--- NOTE | 2020-05-20 10:17 | PDOC.HOSPP ---
- Subjective Encounter Date: 05/20/20 Encounter Time: 10:15 Subjective: Ms. Michaud was seen today in follow-up of Gluteal abscess. she does not have any complaints now. She denies abdominal pain. She noted a little hip pain, but had attributed that to arthritis. She denies having any ischemic heart disease, and denies chest pain or shortness of breath. She can walk a flight of stairs, but it is difficult. She denies any PND or orthopenea. She has had surgery before, , bilateral knee replacement surgery without difficulty. - Objective Vital Signs & Weight: Vital Signs (12 hours) Temp Pulse Resp BP Pulse Ox 05/20/20 04:01 62 16 144/71 H 94 L 05/20/20 00:26 98.2 F 60 16 142/74 H 95 Weight Weight 139 lb 15.896 oz Result Diagrams: 05/20/20 06:50 05/20/20 06:50 Hospitalist ROS - Medication Medications: Active Medications Generic Name Dose Route Start Last Admin Trade Name Freq PRN Reason Stop Dose Admin Sodium Chloride 1,000 mls @ 75 mls/hr 05/19/20 23:45 05/20/20 00:41 Normal Saline 0.9% IV 1,000 mls .[id number] WILEY Administration Cefepime HCl 2 gm/ Sodium 100 mls @ 200 mls/hr 05/20/20 06:00 05/20/20 06:04 Chloride IVPB 100 mls 0600 WILEY Administration - Exam Eye: PERRL, anicteric sclera Heart: no gallops, no rubs, normal peripheral pulses, irregular (alightly irregular), murmur present, II/IV Respiratory: CTAB, no wheezes, no rales, no ronchi, normal chest expansion Gastrointestinal: soft, non-tender, non-distended, normal bowel sounds, no palpable masses, no hepatomegaly Extremities: no cyanosis, 1+ LE edema (non pitting edema in both lower extremities) Hosp A/P (1) Abscess, gluteal, right Code(s): L02.31 - CUTANEOUS ABSCESS OF BUTTOCK Status: Acute (2) Atrial fibrillation Code(s): I48.91 - UNSPECIFIED ATRIAL FIBRILLATION Status: Chronic (3) Dyslipidemia Code(s): E78.5 - HYPERLIPIDEMIA, UNSPECIFIED Status: Chronic (4) HTN (hypertension) Code(s): I10 - ESSENTIAL (PRIMARY) HYPERTENSION Status: Chronic Qualifiers: Hypertension type: essential hypertension Qualified Code(s): I10 - Essential (primary) hypertension (5) Hypothyroidism Code(s): E03.9 - HYPOTHYROIDISM, UNSPECIFIED Status: Chronic (6) Osteoarthritis Code(s): M19.90 - UNSPECIFIED OSTEOARTHRITIS, UNSPECIFIED SITE Status: Chronic - Plan * Gluteal abscess- continue IV Cefepime and Vancomycin * Await Surgery evaluation * HTN- blood pressure is stable * AFIB- her heart rate is stable- will hold coumadin- pending Surgery evaluation
[2020-05-20 17:01] LABS: SARS-CoV-2 MS2 Positive; SARS-CoV-2 N Gene Negative; SARS-CoV-2 S Gene Negative; SARS-CoV-2 by NAA Not Detected (NotDetected); SARS-CoV-2 orf1ab Negative
--- NOTE | 2020-05-20 17:16 | EKG ---
Test Reason : Blood Pressure : / mmHG Vent. Rate : 066 BPM Atrial Rate : 050 BPM P-R Int : 000 ms QRS Dur : 088 ms QT Int : 402 ms P-R-T Axes : 000 074 -18 degrees QTc Int : 421 ms Atrial fibrillation Septal infarct , age undetermined Abnormal ECG Confirmed by LAURA DUFF DO ([id number]), editor greeting card HERMILO OKEEFE ([id number]) on 05/20/2020 5:15:51 PM Referred By: Confirmed By:LAURA DUFF DO
--- NOTE | 2020-05-20 20:47 | CON ---
DATE OF CONSULTATION: 05/20/2020 This is Dia Burroughs NP dictating a report for Chele Sotelo DO. REQUESTING: Dr. Brand, ER physician. SUBJECTIVE: This is an 84-year-old female, who presented to the emergency room with right hip and thigh pain for a couple of days. The patient reports she just thought it was because she had done a lot of walking. The pain actually was resolved once she was seen in the emergency room, but the patient was having elevated temperature, dysuria and urinary frequency. The patient has a previous history of urinary tract infections, which causes her to become severely confused. The patient was admitted and treated for urinary tract infection. A CT abdomen and pelvis showed a soft tissue abscess involving the right hemipelvis posterior to the right ischium deep to the right gluteus muscle. General Surgery was consulted. The patient does have a normal white blood cell count. The patient is currently afebrile. The patient denies any recent injury or falls. PAST MEDICAL HISTORY: Atrial fibrillation, on warfarin, current INR 1.9. Lymphoma, hypothyroidism, hyperlipidemia and hypertension. PAST SURGICAL HISTORY: Bilateral knee replacement. SOCIAL HISTORY: Denies alcohol use. Is a former smoker. ALLERGIES: ASPIRIN, IODINE, SHRIMP AND STRAWBERRIES. OBJECTIVE: VITAL SIGNS: Blood pressure 148/83, pulse 81, temperature 98, respirations 16, SpO2 of 99% on room air. GENERAL: Well-appearing elderly female, awake, alert, in no distress. HEENT: Head is atraumatic, normocephalic. Trachea midline, no JVD. RESPIRATORY: Good inspiratory and expiratory effort, bilateral breath sounds clear, no wheezing, rales, or rhonchi. CARDIAC: Irregularly irregular rate, no murmurs. ABDOMEN: Soft, nontender, no peritoneal signs, active bowel signs. EXTREMITIES: Moves all extremities, neurovascularly intact x4, no obvious redness or injury to right hip. Buttocks without any obvious redness, swelling, no tenderness when buttocks or right hip and thigh palpated. NEUROLOGIC: No focal deficits, GCS 15. DIAGNOSTICS: The CT scan was reviewed by Dr. Sotelo of abdomen and pelvis. Unable to know for sure if this is a collection of blood or fluid. IMPRESSION: 1. Right gluteal/hemipelvis deep abscess fluid collection/hematoma cannot be ruled out. 2. Acute urinary tract infection. PLAN: Treatment for urinary tract infection by hospitalist. No acute surgical indication for right gluteal hemipelvis fluid collection as the patient has no obvious signs and is not tender to palpation in the area. If concerned, may obtain a percutaneous drainage. If you have any questions, please feel free to reach out to Dr. Sotelo for the surgery team. Job ID: [id number]
[2020-05-20] MEDS: Nystatin Cream 30 GM TUBE TOP SCH (21:50)
[2020-05-21] MEDS: Vancomycin 1 GM in Premix Bag 1 BAG IVPB SCH (00:55)
[2020-05-21] MEDS: Sodium Chloride 0.9% 1,000 ML IV SCH ×2 (03:42→15:35)
[2020-05-21] MEDS: Cefepime 2 GM in Sodium Chloride 0.9% 100 ML IVPB SCH (05:43)
[2020-05-21] MEDS: Nystatin Cream 30 GM TUBE TOP SCH ×2 (09:27→20:16)
[2020-05-21 10:44] LABS: #Basophils 0.1 thou/uL (0.0-0.2); #Eosinphils 0.1 thou/uL (0.0-0.7); #Lymphocytes 2.4 thou/uL (1.20-3.40); #Monocytes 0.9 thou/uL (0.11-0.59); #Neutrophils 7.2 thou/uL (1.40-6.50); %Basophils 0.6 % (0.0-1.0); %Eosinophils 0.7 % (0.0-10.0); %Lymphocytes 22.8 % (21.0-51.0); %Monocytes 8.1 % (0.0-10.0); %Neutrophils 67.9 % (42.0-75.0); Hemoglobin 12.5 g/dL (12.0-16.0); Mean Corpuscular HGB CONC 33.7 g/dL (32.0-36.0); Mean Corpuscular Hemoglobin 30.2 pg (27.0-31.0); Mean Corpuscular Volume 89.8 fL (78.0-98.0); Mean Platelet Volume 8.5 fL (7.4-10.4); Platelet Count 195 thou/uL (130-400); RBC Distribution Width 12.4 % (11.5-14.5); Red Blood Cell (RBC) Count 4.14 mill/uL (4.20-5.40); White Blood Cell (WBC) Count 10.6 thou/uL (4.8-10.8)
[2020-05-21 11:05] LABS: Anion Gap 12 mmol/L (10-20); BUN (Urea Nitrogen) 9 mg/dL (9.8-20.1); Calc. Creatinine Clearance 65 mL/min (70-130); Calcium 9.2 mg/dL (7.8-10.44); Carbon Dioxide 24 mmol/L (23-31); Chloride 105 mmol/L (98-107); Estimated GFR-MDRD Greater than 90; Glucose 110 mg/dL (83-110); Potassium 3.1 mmol/L (3.5-5.1); Sodium 138 mmol/L (136-145)
[2020-05-21] MEDS ORDERED: traMADol HCl 50 MG TAB PO PRN (12:41)
--- NOTE | 2020-05-21 13:15 | PDOC.HOSPP ---
- Subjective Encounter Date: 05/21/20 Encounter Time: 13:11 Subjective: Ms. Michaud was seen today in follow-up of possible abscess in the right gluteal region. She does not have any pain. - Objective Vital Signs & Weight: Vital Signs (12 hours) Temp Pulse Resp BP Pulse Ox 05/21/20 12:15 97.8 F 80 18 124/64 99 05/21/20 08:11 97.6 F 78 20 154/76 H 95 05/21/20 04:34 97.9 F 84 20 114/54 L 98 Weight Weight 139 lb 15.896 oz I&O: 05/20/20 05/21/20 05/22/20 06:59 06:59 06:59 Intake Total 1425 Balance 1425 Result Diagrams: 05/21/20 10:33 05/21/20 10:33 Hospitalist ROS - Medication Medications: Active Medications Generic Name Dose Route Start Last Admin Trade Name Freq PRN Reason Stop Dose Admin Sodium Chloride 1,000 mls @ 75 mls/hr 05/19/20 23:45 05/21/20 03:42 Normal Saline 0.9% IV 1,000 mls .[id number] WILEY Administration Vancomycin HCl 1 gm/ Device 200 mls @ 200 mls/hr 05/20/20 23:59 05/21/20 00:55 IVPB 200 mls 2359 WILEY Administration Cefepime HCl 2 gm/ Sodium 100 mls @ 200 mls/hr 05/20/20 06:00 05/21/20 05:43 Chloride IVPB 100 mls 0600 WILEY Administration Nystatin 0 gm 05/20/20 21:00 05/21/20 09:27 Nystatin Cream 30 Gm Tube TOP 30 gm BID WILEY Administration - Exam Eye: PERRL, anicteric sclera Heart: RRR, no murmur, no gallops, no rubs, normal peripheral pulses Respiratory: CTAB, no wheezes, no rales, no ronchi, normal chest expansion, no tachypnea Gastrointestinal: soft, non-tender, non-distended, normal bowel sounds, no palpable masses, no hepatomegaly Extremities: no cyanosis, no edema Hosp A/P (1) Abscess, gluteal, right Code(s): L02.31 - CUTANEOUS ABSCESS OF BUTTOCK Status: Acute (2) Atrial fibrillation Code(s): I48.91 - UNSPECIFIED ATRIAL FIBRILLATION Status: Chronic (3) Dyslipidemia Code(s): E78.5 - HYPERLIPIDEMIA, UNSPECIFIED Status: Chronic (4) HTN (hypertension) Code(s): I10 - ESSENTIAL (PRIMARY) HYPERTENSION Status: Chronic Qualifiers: Hypertension type: essential hypertension Qualified Code(s): I10 - Essential (primary) hypertension (5) Hypothyroidism Code(s): E03.9 - HYPOTHYROIDISM, UNSPECIFIED Status: Chronic (6) Osteoarthritis Code(s): M19.90 - UNSPECIFIED OSTEOARTHRITIS, UNSPECIFIED SITE Status: Chronic - Plan * Gluteal abscess- continue IV Cefepime and Vancomycin * She has been evaluated by Surgery, and it is not felt that surgical intervention is indicated. It is also possible that thefindings on CT scan may represent a hematoma, especially since she is on coumadin. * Will keep her in the hospital one more day on IV antibiotics, and consider dis charge on oral antibiotics, and repeat CT scan in a few weeks to determine if there has been resolution of the finding. I have explained the plan to the patient and the patient's daughter who is at bedside. * Will re-start her home medications including warfarin * HTN- blood pressure - re-start her home medications * AFIB- her heart rate is stable-will re-start coumadin
[2020-05-21] MEDS ORDERED: Saccharomyces boulardii 250 MG CAP PO SCH (13:30)
[2020-05-21] MEDS ORDERED: Potassium Chloride 20 MEQ TAB PO SCH (13:30)
[2020-05-21 13:45] LABS: INR-International Normal Ratio 2.1; Prothrombin Time 23.6 sec (12.0-14.7)
[2020-05-21] MEDS: Saccharomyces boulardii 250 MG CAP PO SCH ×2 (14:32→14:45)
[2020-05-21] MEDS ORDERED: Montelukast Sodium 10 mg Tablet PO SCH (21:00)
[2020-05-21] MEDS ORDERED: Atorvastatin Calcium 10 MG TAB PO SCH (21:00)
[2020-05-21] MEDS ORDERED: Amitriptyline HCl 10 MG TAB PO SCH (21:00)
[2020-05-21 23:26] LABS: Vancomycin, Trough 5.1 ug/mL
[2020-05-22] MEDS: Vancomycin 1 GM in Premix Bag 1 BAG IVPB SCH (00:50)
[2020-05-22 05:37] LABS: #Basophils 0.1 thou/uL (0.0-0.2); #Eosinphils 0.3 thou/uL (0.0-0.7); #Lymphocytes 3.6 thou/uL (1.20-3.40); #Monocytes 0.9 thou/uL (0.11-0.59); #Neutrophils 4.3 thou/uL (1.40-6.50); %Basophils 1.1 % (0.0-1.0); %Eosinophils 2.9 % (0.0-10.0); %Lymphocytes 39.7 % (21.0-51.0); %Monocytes 9.4 % (0.0-10.0); %Neutrophils 46.9 % (42.0-75.0); Hemoglobin 13.6 g/dL (12.0-16.0); Mean Corpuscular HGB CONC 33.8 g/dL (32.0-36.0); Mean Corpuscular Hemoglobin 30.3 pg (27.0-31.0); Mean Corpuscular Volume 89.7 fL (78.0-98.0); Mean Platelet Volume 8.6 fL (7.4-10.4); Platelet Count 242 thou/uL (130-400); RBC Distribution Width 12.5 % (11.5-14.5); Red Blood Cell (RBC) Count 4.47 mill/uL (4.20-5.40); White Blood Cell (WBC) Count 9.1 thou/uL (4.8-10.8)
[2020-05-22 05:57] LABS: Anion Gap 16 mmol/L (10-20); BUN (Urea Nitrogen) 8 mg/dL (9.8-20.1); Calc. Creatinine Clearance 65 mL/min (70-130); Calcium 9.5 mg/dL (7.8-10.44); Carbon Dioxide 23 mmol/L (23-31); Chloride 102 mmol/L (98-107); Estimated GFR-MDRD Greater than 90; Glucose 94 mg/dL (83-110); Potassium 3.1 mmol/L (3.5-5.1); Sodium 138 mmol/L (136-145)
[2020-05-22] MEDS: Cefepime 2 GM in Sodium Chloride 0.9% 100 ML IVPB SCH (05:59)
[2020-05-22] MEDS ORDERED: Levothyroxine Sodium 50 MCG TAB PO SCH (06:00)
[2020-05-22 06:21] LABS: INR-International Normal Ratio 1.7; Prothrombin Time 20.1 sec (12.0-14.7)
[2020-05-22] MEDS ORDERED: Potassium Chloride 20 MEQ TAB PO SCH ×2 (07:45→13:00)
[2020-05-22] MEDS ORDERED: Atenolol 50 MG TAB PO SCH (09:00)
[2020-05-22] MEDS ORDERED: Amlodipine 10 MG TAB PO SCH (09:00)
[2020-05-22] MEDS ORDERED: Fluticasone Propionate Nasal Spray 16 gm Bottle NASAL SCH (09:00)
[2020-05-22] MEDS ORDERED: Lisinopril 20 MG TAB PO SCH (09:00)
[2020-05-22] MEDS: Nystatin Cream 30 GM TUBE TOP SCH (09:20)
[2020-05-22] MEDS: Saccharomyces boulardii 250 MG CAP PO SCH ×2 (09:22→09:23)
--- NOTE | 2020-05-22 11:28 | PDOC.HOSPP ---
- Subjective Encounter Date: 05/22/20 Encounter Time: 11:26 Subjective: Ms. Michaud was seen today in follow-up of possible gluteal abscess. She does not have any complaints this morning. - Objective Vital Signs & Weight: Vital Signs (12 hours) Temp Pulse Resp BP Pulse Ox 05/22/20 09:23 80 05/22/20 09:21 80 05/22/20 08:10 98.0 F 80 22 H 154/79 H 97 05/22/20 04:07 97.6 F 80 16 151/74 H 97 05/22/20 00:00 98.0 F 97 16 164/71 H 97 Weight Weight 139 lb 15.896 oz I&O: 05/21/20 05/22/20 05/23/20 06:59 06:59 06:59 Intake Total 1425 3950 Balance 1425 3950 Result Diagrams: 05/22/20 05:08 05/22/20 05:08 Hospitalist ROS - Medication Medications: Active Medications Generic Name Dose Route Start Last Admin Trade Name Freq PRN Reason Stop Dose Admin Amitriptyline HCl 10 mg 05/21/20 21:00 05/21/20 20:16 Amitriptyline Hcl 10 Mg Tab PO 10 mg HS WILEY Administration Amlodipine Besylate 10 mg 05/22/20 09:00 05/22/20 09:23 Amlodipine 10 Mg Tab PO 10 mg DAILY WILEY Administration Atenolol 50 mg 05/22/20 09:00 05/22/20 09:21 Atenolol 50 Mg Tab PO 50 mg QAM WILEY Administration Atorvastatin Calcium 10 mg 05/21/20 21:00 05/21/20 20:16 Atorvastatin Calcium 10 Mg Tab PO 10 mg HS WILEY Administration Fluticasone Propionate 0 gm 05/22/20 09:00 05/22/20 09:18 Fluticasone Propionate Nasal [place] 16 Gm Bottle NASAL 1 spr DAILY WILEY Administration Cefepime HCl 2 gm/ Sodium 100 mls @ 200 mls/hr 05/20/20 06:00 05/22/20 05:59 Chloride IVPB 100 mls 0600 WILEY Administration Levothyroxine Sodium 50 mcg 05/22/20 06:00 05/22/20 05:59 Levothyroxine Sodium 50 Mcg Tab PO 50 mcg 0600 WILEY Administration Lisinopril 40 mg 05/22/20 09:00 05/22/20 09:23 Lisinopril 20 Mg Tab PO 40 mg DAILY WILEY Administration Montelukast Sodium 10 mg 05/21/20 21:00 05/21/20 20:16 Montelukast Sodium 10 Mg Tablet PO 10 mg HS WILEY Administration Nystatin 0 gm 05/20/20 21:00 05/22/20 09:20 Nystatin Cream 30 Gm Tube TOP 30 gm BID WILEY Administration Saccharomyces Boulardii 250 mg 05/21/20 09:00 05/22/20 09:23 Saccharomyces Boulardii 250 Mg Cap PO 250 mg DAILY WILEY Administration Sodium Chloride 10 ml 05/22/20 09:00 05/22/20 09:24 Flush - Normal Saline 10 Ml Syringe IVF Not Given Q12HR WILEY Tramadol HCl 50 mg 05/21/20 12:41 05/21/20 20:15 Tramadol Hcl 50 Mg Tab PO 50 mg DAILYPRN PRN Administration Pain - Exam Eye: PERRL, anicteric sclera Heart: RRR, no murmur, no gallops, no rubs, normal peripheral pulses Respiratory: CTAB, no wheezes, no rales, no ronchi, normal chest expansion, no tachypnea Extremities: no edema Hosp A/P (1) Abscess, gluteal, right Code(s): L02.31 - CUTANEOUS ABSCESS OF BUTTOCK Status: Acute (2) Atrial fibrillation Code(s): I48.91 - UNSPECIFIED ATRIAL FIBRILLATION Status: Chronic (3) Dyslipidemia Code(s): E78.5 - HYPERLIPIDEMIA, UNSPECIFIED Status: Chronic (4) HTN (hypertension) Code(s): I10 - ESSENTIAL (PRIMARY) HYPERTENSION Status: Chronic Qualifiers: Hypertension type: essential hypertension Qualified Code(s): I10 - Essential (primary) hypertension (5) Hypothyroidism Code(s): E03.9 - HYPOTHYROIDISM, UNSPECIFIED Status: Chronic (6) Osteoarthritis Code(s): M19.90 - UNSPECIFIED OSTEOARTHRITIS, UNSPECIFIED SITE Status: Chronic - Plan * Gluteal abscess- will transition her antibiotics to Augmentin * She is stable for discharge home, and recommend repeat CT scan in about 2 weeks. * HTN- blood pressure - re-start her home medications * AFIB- she will need to go to the coumadin clinic tomorrow
[2020-05-22 11:33] VITALS: BP 137/73; TEMP 97.6
[2020-05-22] MEDS ORDERED: Vancomycin 1 GM in Premix Bag 1 BAG IVPB SCH (12:00)
[2020-05-22] MEDS ORDERED: Warfarin Sodium 3 MG TAB PO SCH (17:00)
--- NOTE | 2020-05-22 17:31 | PDOC.DS.DS ---
Provider - Provider Date of Admission: 05/19/20 22:54 Date of Discharge: 05/22/20 Admitting Provider: Chele Sotelo DO Consultations: General Surgery Primary Care Physician: DMITRY Price Course - Hospital Course Hospital Course: Mrs. Michaud is an 84-year-old female with a history of atrial fibrillation on Coumadin history of lymphoma. She presented to the emergency room after having a fever up to 101.3. She had also noted some dysuria as well as urinary frequency. She was a weighted in the emergency room and found to have findings consistent with a urinary tract infection. A CT scan of the abdomen and pelvis was also performed and demonstrated a deep abscess in the right gluteal region. For this reason she was admitted to the hospital and general surgery was consulted. She was placed on IV antibiotics during this time. After evaluation with general surgery it was felt that this was not a surgical abscess or it did not require any surgical intervention. The patient had no abdominal pain hip pain attributable to the findings on the CT scan. She never had any identifiable fever in the hospital. She is also on Coumadin for atrial fibrillation and its possible that this fluid collection could be the result of a hematoma. For this reason she will be discharged home on oral antibiotics for a week and recommend that she have a repeat CT scan to see if the fluid collection has resolved. If there is no resolution or increase in the area of fluid collection then she may need to have some type of intervention. She was also instructed that if she were to have the development of fever or severe pain etc. then she is to return to the emergency room. The patient will have a follow-up at the Coumadin clinic tomorrow she has been instructed that she will need a close monitor on her PT and INR due to the fact that she will be discharged home on antibiotics. She is also being discharged home with a probiotic as well. Pertinent Studies: CT scan of Abdomen and Pelvis Resuscitation Status: 05/19/20 23:21 Resuscitation Status Routine Resuscitation Status: FULL: Full Resuscitation - Labs Lab Results: 05/22/20 05:08 05/22/20 05:08 Abnormal Lab Results - Last 48 hrs 05/21/20 10:33: Potassium 3.1 L, BUN 9 L 05/21/20 10:33: RBC 4.14 L, Neutrophils # 7.2 H, Monocytes # 0.9 H 05/21/20 13:18: PT 23.6 H 05/22/20 05:08: Potassium 3.1 L, BUN 8 L 05/22/20 05:08: Basophils % 1.1 H, Lymphocytes # 3.6 H, Monocytes # 0.9 H 05/22/20 05:08: PT 20.1 H Microbiology - Entire Visit 05/19/20 19:30 Urine voided Urine Culture - Final NO GROWTH AT 36 HOURS 05/19/20 20:13 Venous blood - Right Hand Blood Culture - Preliminary NO GROWTH AT 48 HOURS 05/19/20 20:13 Venous blood - Left Hand Blood Culture - Preliminary NO GROWTH AT 48 HOURS - Physical Exam Vitals: Vital Signs (12 hours) Temp Pulse Resp BP Pulse Ox 05/22/20 11:32 97.6 F 81 20 137/73 97 05/22/20 09:23 80 05/22/20 09:21 80 05/22/20 08:10 98.0 F 80 22 H 154/79 H 97 Weight Weight 139 lb 15.896 oz Physical Exam: The patient was seen and examined on the day of discharge. Problem - Problem (1) Abscess, gluteal, right Code(s): L02.31 - CUTANEOUS ABSCESS OF BUTTOCK Status: Acute (2) Atrial fibrillation Code(s): I48.91 - UNSPECIFIED ATRIAL FIBRILLATION Status: Chronic (3) Dyslipidemia Code(s): E78.5 - HYPERLIPIDEMIA, UNSPECIFIED Status: Chronic (4) HTN (hypertension) Code(s): I10 - ESSENTIAL (PRIMARY) HYPERTENSION Status: Chronic Qualifiers: Hypertension type: essential hypertension Qualified Code(s): I10 - Essential (primary) hypertension (5) Hypothyroidism Code(s): E03.9 - HYPOTHYROIDISM, UNSPECIFIED Status: Chronic (6) Osteoarthritis Code(s): M19.90 - UNSPECIFIED OSTEOARTHRITIS, UNSPECIFIED SITE Status: Chronic Plan - Discharge Medications Prescriptions: Amoxicillin/Potassium Clav [Augmentin 875-125 Tablet] 1 each PO Q12HR #14 tablet Saccharomyces boulardii [Florastor] 250 mg PO DAILY #30 cap Home Medications: Medication Instructions Recorded Confirmed Type Warfarin Sodium [Coumadin] 3 mg PO DAILY 09/24/13 05/20/20 History Amlodipine [Norvasc] 10 mg PO DAILY 06/27/17 05/20/20 History Atenolol 25 mg PO HS 06/27/17 05/20/20 History Atenolol [Tenormin] 50 mg PO QAM 06/27/17 05/20/20 History Benazepril HCl 40 mg PO DAILY 06/27/17 05/20/20 History Levothyroxine Sodium [Synthroid] 50 mcg PO QAM 06/27/17 05/20/20 History traMADol HCl [Tramadol HCl] 50 mg PO DAILY PRN 06/27/17 05/20/20 History Amitriptyline HCl 10 mg PO HS 02/28/19 05/20/20 History Atorvastatin Calcium [Lipitor] 10 mg PO HS 02/28/19 05/20/20 History Calcium Carbonate/Vitamin D3 1 tab PO BID-WM 02/28/19 05/20/20 History [Calcium 500-Vit D3 200 Caplet] Fluticasone Propionate [Flonase 1 spr EA NARE DAILY 02/28/19 05/20/20 History Nasal [place]] Montelukast Sodium 10 mg PO HS 02/28/19 05/20/20 History 21/Iron Fu/Folic Acid 1 tab PO DAILY 02/28/19 05/20/20 History [ Complete Caplet] Warfarin Sodium 1.5 tab PO DAILY 02/28/19 05/20/20 History Amoxicillin/Potassium Clav 1 each PO Q12HR #14 tablet 05/22/20 Rx [Augmentin 875-125 Tablet] Saccharomyces boulardii [Florastor] 250 mg PO DAILY #30 cap 05/22/20 Rx Allergies: aspirin Allergy (Verified 02/28/19 14:41) [place] And Derivatives Allergy (Verified 02/28/19 14:41) iodine Allergy (Verified 02/28/19 14:41) Rash shrimp Allergy (Verified 02/28/19 14:41) strawberry Allergy (Verified 02/28/19 14:41) - Discharge Instructions Discharge Instructions:: Follow-up at the coumadin clinic tomorrow for PT/INR Follow-up with Dr. Cherry Tam in 1 -2 weeks. Please have repeat CT scan of the abdomen and Pelvis with contrast to see if the right gluteal fluid collection/abscess/hematoma has resolved Activity:: Activity as Tolerated Nourishment:: Heart Healthy Diet - Follow up Plan Referrals: Gladys Woods FNP [Primary Care Provider] - (10 am 05/23/20 ) Disposition: HOME Quality - Care Measures CORE MEASURES:: N/A
[2020-05-23] MEDS ORDERED: Warfarin Sodium 1.5 MG TAB PO SCH (17:00)
[2020-05-23] MEDS ORDERED: Warfarin Sodium 3 MG TAB PO SCH (17:00)
== END 2020-05-22 14:00 | disposition home or self-care (01) | DRG 603 ==
LOC: ERS 18:11 → ERHOLD 22:54 → SURG A 05-20 14:21
PROVIDERS: ADMIT Surgery; ATTEND Internal Medicine
DX: L02.31 Cutaneous abscess of buttock (principal); N39.0 Urinary tract infection, site not specified; I48.20 Chronic atrial fibrillation, unspecified; Z79.82 Long term (current) use of aspirin; E03.9 Hypothyroidism, unspecified; E78.5 Hyperlipidemia, unspecified; I10 Essential (primary) hypertension; Z96.653 Presence of artificial knee joint, bilateral; M19.90 Unspecified osteoarthritis, unspecified site; Z20.828 Contact with and (suspected) exposure to other viral communicable diseases; Z87.891 Personal history of nicotine dependence; Z88.6 Allergy status to analgesic agent; Z91.013 Allergy to seafood; Z91.018 Allergy to other foods; Z79.01 Long term (current) use of anticoagulants; Z79.899 Other long term (current) drug therapy; Z79.890 Hormone replacement therapy
CPT/HCPCS: 36415; 74177; 80048; 80053; 80202; 81003; 81015; 83605; 83690; 83735; 84484; 85025; 85610; 85730; 87040; 87086; 87635; 93005; 96365; 96367; 96375; J0692; J0696; J1200; J2543; J2930; J3370; J3490; S0028; U0003

== ENCOUNTER 2021-03-22 19:57 | Inpatient (IN) | payer MEDICARE, OTHER ==
[2021-03-22] MEDS ORDERED: Acetaminophen 325 MG TAB ONE (20:31)
[2021-03-22 21:04] LABS: #Basophils 0.2 thou/uL (0.0-0.2); #Lymphocytes 2.3 thou/uL (1.20-3.40); #Monocytes 1.2 thou/uL (0.11-0.59); #Neutrophils 7.2 thou/uL (1.40-6.50); %Basophils 1.4 % (0.0-1.0); %Eosinophils 0.4 % (0.0-10.0); %Lymphocytes 21.4 % (21.0-51.0); %Monocytes 10.7 % (0.0-10.0); %Neutrophils 66.1 % (42.0-75.0); Large Platelets SLIGHT; MDiff Complete? YES; Mean Corpuscular HGB CONC 33.1 g/dL (32.0-36.0); Mean Corpuscular Hemoglobin 28.9 pg (27.0-31.0); Mean Corpuscular Volume 87.2 fL (78.0-98.0); Mean Platelet Volume 11.2 fL (7.4-10.4); Platelet Count 53 thou/uL (130-400); Platelet Morphology Comment Appears Decreased; RBC Distribution Width 12.8 % (11.5-14.5); RBC Morphology Normal; Red Blood Cell (RBC) Count 4.14 mill/uL (4.20-5.40); White Blood Cell (WBC) Count 10.8 thou/uL (4.8-10.8)
[2021-03-22 21:11] LABS: ALT (SGPT) 12 U/L (8-55); AST (SGOT) 18 U/L (5-34); Albumin 3.4 g/dL (3.4-4.8); Alkaline Phosphatase 74 U/L (40-110); Anion Gap 13 mmol/L (10-20); BUN (Urea Nitrogen) 15 mg/dL (9.8-20.1); Bilirubin, Total 1.3 mg/dL (0.2-1.2); Calc. Creatinine Clearance 0 mL/min (70-130); Calcium 8.7 mg/dL (7.8-10.44); Carbon Dioxide 20 mmol/L (23-31); Chloride 98 mmol/L (98-107); Globulin 2.9 g/dL (2.4-3.5); Glucose 109 mg/dL (83-110); Potassium 3.9 mmol/L (3.5-5.1); Protein, Total 6.3 g/dL (5.8-8.1); Sodium 127 mmol/L (136-145)
[2021-03-22 22:29] LABS: Bilirubin Negative (Negative); Blood, Urine Trace (Negative); Clarity Clear (Clear); Glucose, Urine (Dipstick) Normal (Negative); Ketone, Urine Negative (Negative); Leukocyte 500 Leu/uL (Negative); Nitrite Negative (Negative); Protein, Urine (Dipstick) 30 mg/dL (Neg-Trace); Specific Gravity, Urine 1.017 (1.002-1.036); Urobilinogen 6 mg/dL (Less than 2); WBC/HPF Greater than 50 HPF (0-3)
[2021-03-22 22:37] LABS: SARS-CoV-2 NAA Rapid Test Not Detected (NotDetected)
[2021-03-22 22:39] LABS: Bacteria/HPF Rare-Few HPF (None Seen); Renal Epithelial 0-3 HPF (None Seen)
[2021-03-22] MEDS ORDERED: Cefepime 2 GM VIAL ONE (23:28)
[2021-03-22] MEDS ORDERED: Vancomycin 1 GM/200 ML BAG ONE (23:29)
[2021-03-23 00:48] VITALS: BMI 26.9
[2021-03-23] MEDS ORDERED: Acetaminophen 325 MG TAB PO PRN (01:30)
[2021-03-23] MEDS ORDERED: Levothyroxine Sodium 50 MCG TAB PO SCH (07:00)
[2021-03-23 07:36] LABS: Uric Acid 4.6 mg/dL (2.6-6.0)
[2021-03-23 07:38] LABS: Anion Gap 12 mmol/L (10-20); BUN (Urea Nitrogen) 15 mg/dL (9.8-20.1); Calc. Creatinine Clearance 60 mL/min (70-130); Calcium 8.7 mg/dL (7.8-10.44); Carbon Dioxide 21 mmol/L (23-31); Chloride 102 mmol/L (98-107); Glucose 103 mg/dL (83-110); Potassium 3.4 mmol/L (3.5-5.1); Sodium 132 mmol/L (136-145)
[2021-03-23 07:43] LABS: INR-International Normal Ratio 2.1; Prothrombin Time 23.8 sec (12.0-14.7)
[2021-03-23] MEDS ORDERED: traMADol HCl 50 MG TAB PO PRN (07:56)
[2021-03-23 07:59] LABS: #Basophils 0.1 thou/uL (0.0-0.2); #Eosinphils 0.1 thou/uL (0.0-0.7); #Lymphocytes 2.8 thou/uL (1.20-3.40); #Neutrophils 5.1 thou/uL (1.40-6.50); %Basophils 1.4 % (0.0-1.0); %Neutrophils 55.7 % (42.0-75.0); Hemoglobin 11.5 g/dL (12.0-16.0); Mean Corpuscular HGB CONC 32.7 g/dL (32.0-36.0); Mean Corpuscular Hemoglobin 28.8 pg (27.0-31.0); Mean Corpuscular Volume 88.2 fL (78.0-98.0); Mean Platelet Volume 11.2 fL (7.4-10.4); Platelet Count 44 thou/uL (130-400); Platelet Morphology Comment Appears Decreased; RBC Distribution Width 12.7 % (11.5-14.5); RBC Morphology Normal; Red Blood Cell (RBC) Count 3.98 mill/uL (4.20-5.40); White Blood Cell (WBC) Count 9.2 thou/uL (4.8-10.8)
[2021-03-23] MEDS: Lisinopril 20 MG TAB PO SCH (08:58)
[2021-03-23] MEDS: cefTRIAXone\\ROCEPHIN 1 GM in Sodium Chloride 0.9% 100 ML IVPB SCH (08:59)
[2021-03-23] MEDS: Amlodipine 10 MG TAB PO SCH (08:59)
[2021-03-23] MEDS: Atenolol 50 MG TAB PO SCH (09:00)
[2021-03-23] MEDS: Fluticasone Propionate Nasal Spray 16 gm Bottle NASAL SCH (10:18)
[2021-03-23] MEDS: Prenatal Vitamin 1 TAB PO SCH (10:18)
[2021-03-23] MEDS: Warfarin Sodium 3 MG TAB PO SCH (16:44)
[2021-03-23] MEDS: Calcium Carbonate + Vit D 250 MG TAB PO SCH (16:59)
[2021-03-23 18:14] LABS: Band 7 % (5-11); Eosinophils 1 % (0-10); Hemoglobin 11.5 g/dL (12.0-16.0); Lymphocytes 16 % (21-51); MDiff Complete? YES; Mean Corpuscular HGB CONC 33.8 g/dL (32.0-36.0); Mean Corpuscular Hemoglobin 29.7 pg (27.0-31.0); Mean Corpuscular Volume 87.7 fL (78.0-98.0); Mean Platelet Volume 11.5 fL (7.4-10.4); Monocytes 5 % (0-10); Neutrophil 60 % (42-75); Platelet Count 53 thou/uL (130-400); Platelet Morphology Comment Appears Decreased; RBC Distribution Width 12.6 % (11.5-14.5); RBC Morphology Normal; Reactive Lymphocytes 11 % (0-10); Red Blood Cell (RBC) Count 3.86 mill/uL (4.20-5.40); White Blood Cell (WBC) Count 8.9 thou/uL (4.8-10.8)
[2021-03-23] MEDS: Atenolol 25 MG TAB PO SCH (20:56)
[2021-03-23] MEDS: Montelukast Sodium 10 mg Tablet PO SCH (20:56)
[2021-03-23] MEDS: Amitriptyline HCl 10 MG TAB PO SCH (20:57)
[2021-03-23] MEDS: Atorvastatin Calcium 10 MG TAB PO SCH (20:57)
[2021-03-24] MEDS: Levothyroxine Sodium 50 MCG TAB PO SCH (06:09)
[2021-03-24 07:00] LABS: INR-International Normal Ratio 1.8; Prothrombin Time 21.2 sec (12.0-14.7)
[2021-03-24] MEDS: cefTRIAXone\\ROCEPHIN 1 GM in Sodium Chloride 0.9% 100 ML IVPB SCH (07:58)
[2021-03-24] MEDS: Prenatal Vitamin 1 TAB PO SCH (07:58)
[2021-03-24] MEDS: Lisinopril 20 MG TAB PO SCH (07:58)
[2021-03-24] MEDS: Atenolol 50 MG TAB PO SCH (07:58)
[2021-03-24] MEDS: Amlodipine 10 MG TAB PO SCH (07:58)
[2021-03-24] MEDS: Fluticasone Propionate Nasal Spray 16 gm Bottle NASAL SCH (07:59)
[2021-03-24] MEDS: Calcium Carbonate + Vit D 250 MG TAB PO SCH ×2 (10:38→17:38)
[2021-03-24 11:08] LABS: #Basophils 0.1 thou/uL (0.0-0.2); #Eosinphils 0.1 thou/uL (0.0-0.7); #Lymphocytes 2.1 thou/uL (1.20-3.40); #Monocytes 0.8 thou/uL (0.11-0.59); %Basophils 0.9 % (0.0-1.0); %Eosinophils 0.8 % (0.0-10.0); %Lymphocytes 18.8 % (21.0-51.0); %Monocytes 7.3 % (0.0-10.0); %Neutrophils 72.3 % (42.0-75.0); Hemoglobin 12.7 g/dL (12.0-16.0); Mean Corpuscular HGB CONC 32.5 g/dL (32.0-36.0); Mean Corpuscular Hemoglobin 28.4 pg (27.0-31.0); Mean Corpuscular Volume 87.4 fL (78.0-98.0); Mean Platelet Volume 11.1 fL (7.4-10.4); Platelet Count 92 thou/uL (130-400); RBC Distribution Width 12.7 % (11.5-14.5); Red Blood Cell (RBC) Count 4.48 mill/uL (4.20-5.40); White Blood Cell (WBC) Count 11.1 thou/uL (4.8-10.8)
[2021-03-24 11:39] LABS: ALT (SGPT) 16 U/L (8-55); AST (SGOT) 24 U/L (5-34); Albumin 3.4 g/dL (3.4-4.8); Alkaline Phosphatase 80 U/L (40-110); Anion Gap 14 mmol/L (10-20); BUN (Urea Nitrogen) 11 mg/dL (9.8-20.1); Bilirubin, Total 0.9 mg/dL (0.2-1.2); Calc. Creatinine Clearance 62 mL/min (70-130); Calcium 9.3 mg/dL (7.8-10.44); Carbon Dioxide 21 mmol/L (23-31); Chloride 100 mmol/L (98-107); Globulin 3.1 g/dL (2.4-3.5); Glucose 121 mg/dL (83-110); Potassium 3.4 mmol/L (3.5-5.1); Protein, Total 6.5 g/dL (5.8-8.1); Sodium 132 mmol/L (136-145)
[2021-03-24] MEDS ORDERED: Acetaminophen 325 MG TAB PO PRN (14:29)
[2021-03-24] MEDS ORDERED: Ibuprofen 600 MG TAB PO PRN (16:44)
[2021-03-24] MEDS ORDERED: Potassium Chloride 20 MEQ TAB PO SCH (16:45)
[2021-03-24] MEDS: Cefepime 1 GM in Sodium Chloride 0.9% 100 ML IVPB SCH (17:38)
[2021-03-24] MEDS: VANCOMYCIN 1.25 GM/250 ML BAG 1.25 GM in Premix Bag 1 BAG IVPB SCH (18:16)
[2021-03-24] MEDS: Amitriptyline HCl 10 MG TAB PO SCH (19:56)
[2021-03-24] MEDS: Atorvastatin Calcium 10 MG TAB PO SCH (19:56)
[2021-03-24] MEDS: Atenolol 25 MG TAB PO SCH (19:56)
[2021-03-24] MEDS: Montelukast Sodium 10 mg Tablet PO SCH (19:56)
[2021-03-25] MEDS: Cefepime 1 GM in Sodium Chloride 0.9% 100 ML IVPB SCH ×2 (06:16→17:07)
[2021-03-25] MEDS: Levothyroxine Sodium 50 MCG TAB PO SCH (06:17)
[2021-03-25 07:12] LABS: Prothrombin Time 22.9 sec (12.0-14.7)
[2021-03-25 07:46] LABS: ALT (SGPT) 16 U/L (8-55); AST (SGOT) 29 U/L (5-34); Albumin 2.7 g/dL (3.4-4.8); Alkaline Phosphatase 65 U/L (40-110); Anion Gap 14 mmol/L (10-20); BUN (Urea Nitrogen) 13 mg/dL (9.8-20.1); Bilirubin, Total 0.7 mg/dL (0.2-1.2); Calc. Creatinine Clearance 66 mL/min (70-130); Calcium 8.5 mg/dL (7.8-10.44); Carbon Dioxide 17 mmol/L (23-31); Chloride 106 mmol/L (98-107); Globulin 2.7 g/dL (2.4-3.5); Glucose 94 mg/dL (83-110); Potassium 4.3 mmol/L (3.5-5.1); Protein, Total 5.4 g/dL (5.8-8.1); Sodium 133 mmol/L (136-145)
[2021-03-25 08:56] LABS: #Basophils 0.1 thou/uL (0.0-0.2); #Eosinphils 0.2 thou/uL (0.0-0.7); #Lymphocytes 1.6 thou/uL (1.20-3.40); #Monocytes 0.6 thou/uL (0.11-0.59); #Neutrophils 4.8 thou/uL (1.40-6.50); %Basophils 0.8 % (0.0-1.0); %Eosinophils 2.1 % (0.0-10.0); %Lymphocytes 21.9 % (21.0-51.0); %Monocytes 8.8 % (0.0-10.0); %Neutrophils 66.4 % (42.0-75.0); Mean Corpuscular HGB CONC 32.7 g/dL (32.0-36.0); Mean Corpuscular Volume 88.4 fL (78.0-98.0); Platelet Count 75 thou/uL (130-400); RBC Distribution Width 12.6 % (11.5-14.5); Red Blood Cell (RBC) Count 4.15 mill/uL (4.20-5.40); White Blood Cell (WBC) Count 7.3 thou/uL (4.8-10.8)
[2021-03-25] MEDS: Prenatal Vitamin 1 TAB PO SCH (09:31)
[2021-03-25] MEDS: Atenolol 50 MG TAB PO SCH (09:32)
[2021-03-25] MEDS: Lisinopril 20 MG TAB PO SCH (09:32)
[2021-03-25] MEDS: Amlodipine 10 MG TAB PO SCH (09:33)
[2021-03-25] MEDS: Calcium Carbonate + Vit D 250 MG TAB PO SCH ×2 (09:33→17:09)
[2021-03-25] MEDS: Fluticasone Propionate Nasal Spray 16 gm Bottle NASAL SCH (09:33)
[2021-03-25] MEDS: Warfarin Sodium 3 MG TAB PO SCH (18:02)
[2021-03-25] MEDS: VANCOMYCIN 1.25 GM/250 ML BAG 1.25 GM in Premix Bag 1 BAG IVPB SCH (18:02)
[2021-03-25] MEDS: Atorvastatin Calcium 10 MG TAB PO SCH (20:00)
[2021-03-25] MEDS: Atenolol 25 MG TAB PO SCH (20:00)
[2021-03-25] MEDS: Montelukast Sodium 10 mg Tablet PO SCH (20:00)
[2021-03-25] MEDS: Amitriptyline HCl 10 MG TAB PO SCH (20:00)
[2021-03-26 05:03] VITALS: TEMP 98.2
[2021-03-26] MEDS: Cefepime 1 GM in Sodium Chloride 0.9% 100 ML IVPB SCH (05:13)
[2021-03-26] MEDS: Levothyroxine Sodium 50 MCG TAB PO SCH (05:13)
[2021-03-26 07:06] LABS: #Basophils 0.1 thou/uL (0.0-0.2); #Eosinphils 0.3 thou/uL (0.0-0.7); #Lymphocytes 1.8 thou/uL (1.20-3.40); #Monocytes 0.5 thou/uL (0.11-0.59); #Neutrophils 3.5 thou/uL (1.40-6.50); %Basophils 1.2 % (0.0-1.0); %Eosinophils 4.3 % (0.0-10.0); %Lymphocytes 29.1 % (21.0-51.0); %Monocytes 8.7 % (0.0-10.0); %Neutrophils 56.7 % (42.0-75.0); Hemoglobin 10.8 g/dL (12.0-16.0); Mean Corpuscular Hemoglobin 29.2 pg (27.0-31.0); Mean Corpuscular Volume 88.3 fL (78.0-98.0); Mean Platelet Volume 10.3 fL (7.4-10.4); Platelet Count 97 thou/uL (130-400); RBC Distribution Width 12.7 % (11.5-14.5); White Blood Cell (WBC) Count 6.1 thou/uL (4.8-10.8)
[2021-03-26 07:13] LABS: INR-International Normal Ratio 1.9; Prothrombin Time 21.7 sec (12.0-14.7)
[2021-03-26 07:27] LABS: ALT (SGPT) 22 U/L (8-55); AST (SGOT) 33 U/L (5-34); Albumin 2.9 g/dL (3.4-4.8); Alkaline Phosphatase 69 U/L (40-110); Anion Gap 12 mmol/L (10-20); BUN (Urea Nitrogen) 11 mg/dL (9.8-20.1); Bilirubin, Total 0.5 mg/dL (0.2-1.2); Calc. Creatinine Clearance 69 mL/min (70-130); Calcium 8.8 mg/dL (7.8-10.44); Carbon Dioxide 23 mmol/L (23-31); Chloride 104 mmol/L (98-107); Globulin 2.6 g/dL (2.4-3.5); Glucose 99 mg/dL (83-110); Potassium 3.7 mmol/L (3.5-5.1); Protein, Total 5.5 g/dL (5.8-8.1); Sodium 135 mmol/L (136-145)
[2021-03-26 08:36] VITALS: BP 143/76
[2021-03-26] MEDS: Fluticasone Propionate Nasal Spray 16 gm Bottle NASAL SCH (09:39)
[2021-03-26] MEDS: Amlodipine 10 MG TAB PO SCH (09:39)
[2021-03-26] MEDS: Lisinopril 20 MG TAB PO SCH (09:40)
[2021-03-26] MEDS: Prenatal Vitamin 1 TAB PO SCH (09:40)
[2021-03-26] MEDS ORDERED: Gentamicin Sulfate 120 MG in Premix Bag 1 BAG IVPB SCH (13:15)
[2021-03-26] MEDS: Atenolol 50 MG TAB PO SCH (13:56)
[2021-03-26] MEDS: Calcium Carbonate + Vit D 250 MG TAB PO SCH (13:56)
== END 2021-03-26 16:13 | disposition home or self-care (01) | DRG 871 ==
LOC: ERS 19:57 → T4-B 23:20
PROVIDERS: ADMIT Family Medicine; ATTEND Family Medicine
DX: A41.9 Sepsis, unspecified organism (principal); G93.41 Metabolic encephalopathy; E87.1 Hypo-osmolality and hyponatremia; N39.0 Urinary tract infection, site not specified; Z20.822 Contact with and (suspected) exposure to COVID-19; Z96.653 Presence of artificial knee joint, bilateral; E03.9 Hypothyroidism, unspecified; E78.5 Hyperlipidemia, unspecified; I10 Essential (primary) hypertension; I48.91 Unspecified atrial fibrillation; M19.90 Unspecified osteoarthritis, unspecified site; M79.89 Other specified soft tissue disorders; E86.1 Hypovolemia; R65.20 Severe sepsis without septic shock; D69.6 Thrombocytopenia, unspecified; Z87.891 Personal history of nicotine dependence; Z85.72 Personal history of non-Hodgkin lymphomas; Z88.6 Allergy status to analgesic agent; Z91.013 Allergy to seafood; Z91.018 Allergy to other foods; Z79.01 Long term (current) use of anticoagulants; Z79.899 Other long term (current) drug therapy; Z79.890 Hormone replacement therapy; Z79.51 Long term (current) use of inhaled steroids
CPT/HCPCS: 36415; 70450; 71045; 80048; 80053; 81003; 81015; 83605; 83735; 83930; 83935; 84100; 84300; 84443; 84550; 85025; 85060; 85610; 87040; 87077; 87086; 87186; J0692; J0696; J1580; J3370; J3490; U0002

== ENCOUNTER 2021-08-20 14:42 | Inpatient (IN) | payer MEDICARE, OTHER ==
[2021-08-20] MEDS ORDERED: Promethazine HCl 25 MG/ML VIAL IM PRN (19:14)
[2021-08-20] MEDS ORDERED: Ondansetron PF 4 MG/2 ML Vial IVP PRN (19:14)
[2021-08-20] MEDS ORDERED: Phytonadione 5 MG TAB PO SCH (19:15)
[2021-08-20] MEDS ORDERED: traMADol HCl 50 MG TAB PO PRN (19:18)
[2021-08-20] MEDS ORDERED: Morphine 4 MG/ML VIAL SLOW IVP PRN (19:21)
[2021-08-20] MEDS ORDERED: Sodium Chloride 0.9% 1,000 ML IV SCH (20:00)
[2021-08-20 20:14] LABS: #Basophils 0.1 thou/uL (0.0-0.2); #Lymphocytes 1.6 thou/uL (1.20-3.40); #Monocytes 0.5 thou/uL (0.11-0.59); #Neutrophils 4.5 thou/uL (1.40-6.50); %Basophils 1.1 % (0.0-1.0); %Eosinophils 0.4 % (0.0-10.0); %Lymphocytes 24.1 % (21.0-51.0); %Monocytes 7.9 % (0.0-10.0); %Neutrophils 66.5 % (42.0-75.0); Hemoglobin 11.5 g/dL (12.0-16.0); Mean Corpuscular HGB CONC 32.9 g/dL (32.0-36.0); Mean Corpuscular Hemoglobin 29.3 pg (27.0-31.0); Mean Corpuscular Volume 88.9 fL (78.0-98.0); Mean Platelet Volume 9.1 fL (7.4-10.4); Platelet Count 106 thou/uL (130-400); RBC Distribution Width 13.4 % (11.5-14.5); Red Blood Cell (RBC) Count 3.93 mill/uL (4.20-5.40); White Blood Cell (WBC) Count 6.8 thou/uL (4.8-10.8)
[2021-08-20 20:19] LABS: INR-International Normal Ratio 2.3; Prothrombin Time 26.1 sec (12.0-14.7)
[2021-08-20 20:20] LABS: PTT 71.3 sec (22.9-36.1)
[2021-08-20] MEDS: Amitriptyline HCl 10 MG TAB PO SCH (20:27)
[2021-08-20 20:28] LABS: Anion Gap 13 mmol/L (10-20); BUN (Urea Nitrogen) 8 mg/dL (9.8-20.1); Calc. Creatinine Clearance 0 mL/min (70-130); Calcium 9.3 mg/dL (7.8-10.44); Carbon Dioxide 24 mmol/L (23-31); Chloride 100 mmol/L (98-107); Glucose 140 mg/dL (83-110); Phosphorus 2.9 mg/dL (2.3-4.7); Potassium 3.2 mmol/L (3.5-5.1); Sodium 134 mmol/L (136-145)
[2021-08-20] MEDS: Montelukast Sodium 10 mg Tablet PO SCH (20:28)
[2021-08-20] MEDS: Senokot S 8.6-50 MG TAB PO SCH (20:28)
[2021-08-20] MEDS: Nitrofurantoin Monohyd/M-Cryst 100 MG CAP PO SCH (20:29)
[2021-08-20] MEDS: Atorvastatin Calcium 10 MG TAB PO SCH (20:29)
[2021-08-20] MEDS: Famotidine 20 MG TAB PO SCH (20:29)
[2021-08-20] MEDS ORDERED: Atenolol 25 MG TAB PO SCH (21:00)
[2021-08-20] MEDS: traMADol HCl 50 MG TAB PO SCH (23:40)
[2021-08-21] MEDS: Potassium Chloride 10 MEQ in Premix Bag 1 BAG IVPB SCH ×4 (00:41→04:31)
[2021-08-21 03:25] VITALS: BMI 24.7
[2021-08-21] MEDS: traMADol HCl 50 MG TAB PO SCH ×3 (05:39→19:35)
[2021-08-21] MEDS: Levothyroxine Sodium 50 MCG TAB PO SCH (05:40)
[2021-08-21 07:30] LABS: INR-International Normal Ratio 1.9; Prothrombin Time 21.9 sec (12.0-14.7)
[2021-08-21 07:31] LABS: PTT 65.4 sec (22.9-36.1)
[2021-08-21 07:32] LABS: #Basophils 0.1 thou/uL (0.0-0.2); #Eosinphils 0.2 thou/uL (0.0-0.7); #Lymphocytes 2.5 thou/uL (1.20-3.40); #Monocytes 0.5 thou/uL (0.11-0.59); #Neutrophils 4.5 thou/uL (1.40-6.50); %Basophils 1.1 % (0.0-1.0); %Eosinophils 2.2 % (0.0-10.0); %Lymphocytes 31.7 % (21.0-51.0); Hemoglobin 10.2 g/dL (12.0-16.0); Mean Corpuscular HGB CONC 33.8 g/dL (32.0-36.0); Mean Corpuscular Hemoglobin 29.8 pg (27.0-31.0); Mean Corpuscular Volume 88.2 fL (78.0-98.0); Mean Platelet Volume 9.6 fL (7.4-10.4); Platelet Count 101 thou/uL (130-400); RBC Distribution Width 13.3 % (11.5-14.5); White Blood Cell (WBC) Count 7.7 thou/uL (4.8-10.8)
[2021-08-21 07:44] LABS: Anion Gap 13 mmol/L (10-20); BUN (Urea Nitrogen) 6 mg/dL (9.8-20.1); Calc. Creatinine Clearance 71 mL/min (70-130); Calcium 9.1 mg/dL (7.8-10.44); Carbon Dioxide 20 mmol/L (23-31); Chloride 100 mmol/L (98-107); Glucose 93 mg/dL (83-110); Magnesium 1.9 mg/dL (1.6-2.6); Phosphorus 2.4 mg/dL (2.3-4.7); Potassium 3.5 mmol/L (3.5-5.1); Sodium 129 mmol/L (136-145)
[2021-08-21] MEDS ORDERED: Potassium Phosphate 15 MMOL, Magnesium Sulfate 2 GM in Sodium Chloride 0.9% 250 ML 250 ML IVPB SCH (08:00)
[2021-08-21] MEDS ORDERED: Magnesium 2 GM/50 ML 2 GM in Premix Bag 1 BAG IVPB SCH (08:00)
[2021-08-21] MEDS: Nitrofurantoin Monohyd/M-Cryst 100 MG CAP PO SCH ×2 (08:57→22:45)
[2021-08-21] MEDS: Atenolol 50 MG TAB PO SCH (08:57)
[2021-08-21] MEDS: Famotidine 20 MG TAB PO SCH ×2 (08:57→21:53)
[2021-08-21] MEDS: Senokot S 8.6-50 MG TAB PO SCH ×2 (08:59→21:53)
[2021-08-21] MEDS ORDERED: Amlodipine 10 MG TAB PO SCH (09:00)
[2021-08-21] MEDS ORDERED: ceFAZolin 2 GM/Dextrose 50 ML 2 GM in Premix Bag 1 BAG IVPB SCH (09:00)
[2021-08-21] MEDS ORDERED: Fentanyl 250 MCG/5 ML VIAL ONE (13:32)
[2021-08-21] MEDS ORDERED: Dexmedetomidine 200 MCG/2 ML VIAL ONE (13:32)
[2021-08-21 14:33] LABS: INR-International Normal Ratio 1.4; Prothrombin Time 17.5 sec (12.0-14.7)
[2021-08-21] MEDS ORDERED: ceFAZolin Sodium (SDC) 2 GM/100 ML BAG ONE (14:41)
[2021-08-21] MEDS ORDERED: Rocuronium Bromide 10 MG/ML (10ML VIAL) ONE (14:45)
[2021-08-21] MEDS ORDERED: Lidocaine 1% PF 5 ML VIAL ONE (14:45)
[2021-08-21] MEDS ORDERED: PROPOFOL 200 MG/20 ML VIAL ONE (14:45)
[2021-08-21] MEDS ORDERED: ePHEDrine 50 MG/ML VIAL ONE (14:45)
[2021-08-21] MEDS ORDERED: GLYCOPYRROLATE/PF 0.2 MG/ML VIAL ONE (14:45)
[2021-08-21] MEDS ORDERED: Ondansetron PF 4 MG/2 ML Vial ONE (14:45)
[2021-08-21] MEDS ORDERED: Dexamethasone 20 MG/5 ML VIAL ONE (14:45)
[2021-08-21] MEDS ORDERED: Sodium Chloride 0.9% 1,000 ML IV SCH (21:00)
[2021-08-21] MEDS: Atenolol 25 MG TAB PO SCH (21:53)
[2021-08-21] MEDS: Montelukast Sodium 10 mg Tablet PO SCH (21:53)
[2021-08-21] MEDS: Amitriptyline HCl 10 MG TAB PO SCH (21:53)
[2021-08-21] MEDS: Atorvastatin Calcium 10 MG TAB PO SCH (21:53)
[2021-08-21] MEDS ORDERED: CEFAZOLIN 2 GM in Sodium Chloride 0.9% 100 ML IVPB SCH (22:00)
[2021-08-22] MEDS ORDERED: CEFAZOLIN 1 GM in Sodium Chloride 0.9% 100 ML IVPB SCH (01:00)
[2021-08-22 05:35] LABS: #Basophils 0.1 thou/uL (0.0-0.2); #Lymphocytes 1.6 thou/uL (1.20-3.40); #Monocytes 0.6 thou/uL (0.11-0.59); #Neutrophils 6.1 thou/uL (1.40-6.50); %Basophils 1.5 % (0.0-1.0); %Eosinophils 0.1 % (0.0-10.0); %Lymphocytes 19.4 % (21.0-51.0); %Neutrophils 72.1 % (42.0-75.0); Hemoglobin 8.6 g/dL (12.0-16.0); Mean Corpuscular HGB CONC 33.1 g/dL (32.0-36.0); Mean Corpuscular Hemoglobin 29.5 pg (27.0-31.0); Mean Corpuscular Volume 89.1 fL (78.0-98.0); Mean Platelet Volume 8.8 fL (7.4-10.4); Platelet Count 141 thou/uL (130-400); RBC Distribution Width 13.1 % (11.5-14.5); Red Blood Cell (RBC) Count 2.92 mill/uL (4.20-5.40); White Blood Cell (WBC) Count 8.5 thou/uL (4.8-10.8)
[2021-08-22] MEDS: Levothyroxine Sodium 50 MCG TAB PO SCH (05:49)
[2021-08-22 05:54] LABS: INR-International Normal Ratio 1.5; Prothrombin Time 18.7 sec (12.0-14.7)
[2021-08-22 05:55] LABS: PTT 47.6 sec (22.9-36.1)
[2021-08-22] MEDS: Ibuprofen 200 MG TAB PO PRN (06:12)
[2021-08-22 07:39] LABS: Anion Gap 16 mmol/L (10-20); BUN (Urea Nitrogen) 14 mg/dL (9.8-20.1); Calc. Creatinine Clearance 49 mL/min (70-130); Carbon Dioxide 20 mmol/L (23-31); Chloride 103 mmol/L (98-107); Glucose 137 mg/dL (83-110); Magnesium 2.1 mg/dL (1.6-2.6); Phosphorus 4.8 mg/dL (2.3-4.7); Potassium 4.2 mmol/L (3.5-5.1); Sodium 135 mmol/L (136-145)
[2021-08-22] MEDS: CEFAZOLIN 2 GM, Admixture Fee 1 EACH in Sodium Chloride 0.9% 100 ML IVPB SCH ×2 (07:49→15:15)
[2021-08-22] MEDS: Senokot S 8.6-50 MG TAB PO SCH ×2 (09:29→20:32)
[2021-08-22] MEDS: Famotidine 20 MG TAB PO SCH ×2 (09:29→20:31)
[2021-08-22] MEDS: Nitrofurantoin Monohyd/M-Cryst 100 MG CAP PO SCH ×2 (09:29→20:32)
[2021-08-22] MEDS: Polyethylene Glycol 3350 17 GM Packet PO SCH (09:30)
[2021-08-22] MEDS: Amlodipine 10 MG TAB PO SCH (09:30)
[2021-08-22] MEDS: Atenolol 50 MG TAB PO SCH (10:29)
[2021-08-22 13:58] LABS: Bacteria/HPF None Seen HPF (None Seen); Bilirubin Negative (Negative); Blood, Urine Trace (Negative); Clarity Clear (Clear); Glucose, Urine (Dipstick) Normal (Negative); Ketone, Urine 10 mg/dL (Negative); Leukocyte Negative Leu/uL (Negative); Mucous/LPF Rare LPF (<2+); Nitrite Negative (Negative); Protein, Urine (Dipstick) Negative (Neg-Trace); Specific Gravity, Urine 1.019 (1.002-1.036); Squamous Epithelial None Seen HPF (0-3); Urobilinogen Normal mg/dL (Less than 2)
[2021-08-22] MEDS: Atorvastatin Calcium 10 MG TAB PO SCH (20:31)
[2021-08-22] MEDS: Amitriptyline HCl 10 MG TAB PO SCH (20:31)
[2021-08-22] MEDS: Montelukast Sodium 10 mg Tablet PO SCH (20:32)
[2021-08-22] MEDS: Atenolol 25 MG TAB PO SCH (20:35)
[2021-08-23 05:19] LABS: #Basophils 0.1 thou/uL (0.0-0.2); #Eosinphils 0.1 thou/uL (0.0-0.7); #Lymphocytes 2.2 thou/uL (1.20-3.40); #Monocytes 0.5 thou/uL (0.11-0.59); #Neutrophils 4.7 thou/uL (1.40-6.50); %Lymphocytes 29.1 % (21.0-51.0); %Neutrophils 61.9 % (42.0-75.0); Hemoglobin 7.1 g/dL (12.0-16.0); Mean Corpuscular HGB CONC 33.9 g/dL (32.0-36.0); Mean Corpuscular Hemoglobin 29.8 pg (27.0-31.0); Mean Corpuscular Volume 88.1 fL (78.0-98.0); Mean Platelet Volume 9.3 fL (7.4-10.4); Platelet Count 177 thou/uL (130-400); RBC Distribution Width 13.3 % (11.5-14.5); Red Blood Cell (RBC) Count 2.38 mill/uL (4.20-5.40); White Blood Cell (WBC) Count 7.6 thou/uL (4.8-10.8)
[2021-08-23 05:53] LABS: Anion Gap 11 mmol/L (10-20); BUN (Urea Nitrogen) 15 mg/dL (9.8-20.1); Calc. Creatinine Clearance 58 mL/min (70-130); Calcium 8.6 mg/dL (7.8-10.44); Carbon Dioxide 23 mmol/L (23-31); Chloride 103 mmol/L (98-107); Glucose 122 mg/dL (83-110); Phosphorus 2.8 mg/dL (2.3-4.7); Potassium 3.8 mmol/L (3.5-5.1); Sodium 133 mmol/L (136-145)
[2021-08-23] MEDS: Levothyroxine Sodium 50 MCG TAB PO SCH (06:41)
[2021-08-23] MEDS: Amlodipine 10 MG TAB PO SCH (08:46)
[2021-08-23] MEDS: Atenolol 50 MG TAB PO SCH (08:47)
[2021-08-23] MEDS: Nitrofurantoin Monohyd/M-Cryst 100 MG CAP PO SCH ×2 (08:48→20:29)
[2021-08-23] MEDS: Senokot S 8.6-50 MG TAB PO SCH ×2 (08:49→20:32)
[2021-08-23] MEDS: Polyethylene Glycol 3350 17 GM Packet PO SCH (08:50)
[2021-08-23] MEDS: Acetaminophen 500 MG TAB PO PRN (14:13)
[2021-08-23] MEDS: Amitriptyline HCl 10 MG TAB PO SCH (20:29)
[2021-08-23] MEDS: Atorvastatin Calcium 10 MG TAB PO SCH (20:30)
[2021-08-23] MEDS: Montelukast Sodium 10 mg Tablet PO SCH (20:30)
[2021-08-23] MEDS: Atenolol 25 MG TAB PO SCH (20:35)
[2021-08-23] MEDS ORDERED: Famotidine 20 MG TAB PO SCH (21:00)
[2021-08-24] MEDS: Levothyroxine Sodium 50 MCG TAB PO SCH (05:20)
[2021-08-24 05:57] LABS: Mean Corpuscular HGB CONC 32.7 g/dL (32.0-36.0); Mean Corpuscular Hemoglobin 29.4 pg (27.0-31.0); Mean Corpuscular Volume 89.9 fL (78.0-98.0); Mean Platelet Volume 8.8 fL (7.4-10.4); Platelet Count 213 thou/uL (130-400); RBC Distribution Width 13.4 % (11.5-14.5); Red Blood Cell (RBC) Count 2.72 mill/uL (4.20-5.40); White Blood Cell (WBC) Count 8.6 thou/uL (4.8-10.8)
[2021-08-24 06:14] LABS: Band 2 % (5-11); Eosinophils 3 % (0-10); Lymphocytes 35 % (21-51); MDiff Complete? YES; Monocytes 8 % (0-10); Neutrophil 52 % (42-75)
[2021-08-24 06:17] LABS: Anion Gap 12 mmol/L (10-20); BUN (Urea Nitrogen) 11 mg/dL (9.8-20.1); Calc. Creatinine Clearance 67 mL/min (70-130); Carbon Dioxide 23 mmol/L (23-31); Chloride 103 mmol/L (98-107); Glucose 100 mg/dL (83-110); Magnesium 1.9 mg/dL (1.6-2.6); Phosphorus 2.4 mg/dL (2.3-4.7); Potassium 3.8 mmol/L (3.5-5.1); Sodium 134 mmol/L (136-145)
[2021-08-24 08:21] LABS: INR-International Normal Ratio 1.4; PTT 53.2 sec (22.9-36.1); Prothrombin Time 17.2 sec (12.0-14.7)
[2021-08-24] MEDS ORDERED: Enoxaparin Sodium 40 MG/0.4 ML SYRINGE SC SCH (09:00)
[2021-08-24] MEDS ORDERED: Amlodipine 10 MG TAB PO SCH (09:00)
[2021-08-24] MEDS: Nitrofurantoin Monohyd/M-Cryst 100 MG CAP PO SCH (09:30)
[2021-08-24] MEDS: Atenolol 50 MG TAB PO SCH (09:30)
[2021-08-24] MEDS: Acetaminophen 500 MG TAB PO PRN ×2 (09:31→16:14)
[2021-08-24] MEDS: Senokot S 8.6-50 MG TAB PO SCH (09:31)
[2021-08-24] MEDS: Polyethylene Glycol 3350 17 GM Packet PO SCH (09:33)
[2021-08-24] MEDS: Ibuprofen 200 MG TAB PO PRN (12:49)
[2021-08-24] MEDS ORDERED: Warfarin Sodium 3 MG TAB PO SCH (17:00)
[2021-08-24] MEDS ORDERED: Scopolamine 1.5 mg/72 hour Patch TD PRN (17:35)
[2021-08-24 19:35] VITALS: BP 117/68; TEMP 97.5
[2021-08-25] MEDS ORDERED: Warfarin Sodium 1.5 MG TAB PO SCH (17:00)
== END 2021-08-24 19:37 | DRG 522 ==
LOC: SJJU 18:50
PROVIDERS: ADMIT Surgery; ATTEND Surgery
PROC: 30233L1 Transfusion of Nonautologous Fresh Plasma into Peripheral Vein, Percutaneous Approach (ICD-10-PCS; 2021-08-20)
PROC: 30233K1 Transfusion of Nonautologous Frozen Plasma into Peripheral Vein, Percutaneous Approach (ICD-10-PCS; 2021-08-20)
PROC: 0SRR0JZ Replacement of Right Hip Joint, Femoral Surface with Synthetic Substitute, Open Approach (ICD-10-PCS; principal; 2021-08-21)
DX: S72.091A Other fracture of head and neck of right femur, initial encounter for closed fracture (principal); N39.0 Urinary tract infection, site not specified; E87.1 Hypo-osmolality and hyponatremia; D62 Acute posthemorrhagic anemia; W19.XXXA Unspecified fall, initial encounter; I48.91 Unspecified atrial fibrillation; I10 Essential (primary) hypertension; F41.9 Anxiety disorder, unspecified; E78.5 Hyperlipidemia, unspecified; E03.9 Hypothyroidism, unspecified; Z96.653 Presence of artificial knee joint, bilateral; Z20.822 Contact with and (suspected) exposure to COVID-19; Z91.013 Allergy to seafood; Z88.8 Allergy status to other drugs, medicaments and biological substances; Y92.002 Bathroom of unspecified non-institutional (private) residence as the place of occurrence of the external cause; Z86.16 Personal history of COVID-19; Z79.01 Long term (current) use of anticoagulants; Z91.018 Allergy to other foods
CPT/HCPCS: 36415; 36430; 72170; 80048; 81001; 83735; 84100; 85025; 85610; 85730; 86850; 86900; 86901; C1713; C1776; J0690; J1100; J1650; J2405; J2704; J3010; J3475; J3480; J3490; J7050; P9059